=== PATIENT | male | born 1935 | race Caucasian/White ===

== ENCOUNTER 2023-06-30 12:46 | Emergency (ER) | payer MEDICARE, BC, SELFPAY ==
[2023-06-30] VITALS (16 sets, daily range): BP systolic 104–139; BP diastolic 55–74; PULSE 61–86; RESP 10–17; TEMP 36.8; O2SAT 78–100
--- NOTE | ~2023-06-30 | CT_ITS ---
EXAMINATION: CT cervical spine wo con DATE: 06/30/2023 14:21 INDICATION: Head injury TECHNIQUE: Computed tomography (CT) of the cervical spine was performed without intravenous contrast. The dose-length product (DLP) was 244.78 mGy-cm. Automated exposure control and iterative reconstruc tion technique were employed. COMPARISON: None FINDINGS: Bone alignment is normal. There is no fracture. There is severe loss of intervertebral disc space height at C5-6 and C6-7. The vertebral body heights are maintained. The odontoid process is in tact. There is multilevel moderate facet and uncovertebral joint osteoarthritis. Lytic lesions are no crow in the C3-C6 vertebral bodies as well as in the C3 spinous process. IMPRESSION: 1. Severe cervical spondylosis at C5-6 and C6-7 without acute findings. 2. Lytic lesions of the cervical spine which could reflect metastatic disease, myeloma, or other bone lesion. Reviewed, dictated and finalized at location A.
--- NOTE | ~2023-06-30 | XR_ITS ---
EXAMINATION: XR hip RT 2V w AP pelvis DATE: 06/30/2023 14:22 INDICATION: Right hip pain. Fall. TECHNIQUE: An anteroposterior view of the pelvis and 2 views of right hip were obtained. COMPARISON: None. FINDINGS: There is lumbar levocurvature and severe spondylosis. No fracture. There is moderate osteoa rthritis of the hips. IMPRESSION: 1. Moderate osteoarthritis of the hips. Reviewed, dictated and finalized at location E.
--- NOTE | ~2023-06-30 | CT_ITS ---
EXAMINATION: CT brain wo con INDICATION: Head injury COMPARISON: None TECHNIQUE: Standard unenhanced head CT. The dose-length product (DLP) was 605.33 mGy-cm. The mA was a djusted according to patient size. Iterative reconstruction technique was employed. FINDINGS: There is no acute intraparenchymal hemorrhage. No evidence of mass lesion. No evidence of a cute infarction. There is moderate periventricular and subcortical hypodensity probably related to sm all vessel ischemic disease. There is a right frontotemporal scalp hematoma. There is moderate promin ence of the sulci and ventricles related to cerebral atrophy. Intracranial calcified cerebral atheros clerosis is noted. There are no extra-axial collections. There is no mass effect or midline shift. Th e orbits and soft tissues are unremarkable. There is mild mucosal thickening of the paranasal sinuses . An old left temporal craniotomy defect is noted. IMPRESSION: 1. No acute intracranial abnormality. 2. Age related findings. Reviewed, dictated and finalized at location A.
--- NOTE | 2023-06-30 13:41 | ED.FALL ---
HPI - Fall General Chief Complaint: Fall Stated Complaint: GLF, head injury Time Seen by Provider: 06/30/23 13:13 History of Present Illness HPI Narrative: Patient is an 87-year-old male presenting after a fall. 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 He was discharged to a nursing facility several days ago. Today he tried to stand up from his wheelchair and he fell forward striking the right side of his face. Also sustained some skin tears to his right arm. He was complaining of right hip pain. Does not think that he lost consciousness. He does started aspirin but no anticoagulation. Denies further complaints. Unsure last tetanus. Related Data Allergies Allergy/AdvReac Type Severity Reaction Status Date / Time No Known Allergies Allergy Verified 06/30/23 15:04 Review of Systems Review of Systems: All systems reviewed & are unremarkable except as noted in HPI and below Exam Narrative: GENERAL: Elderly male lying in bed in no acute distress HEAD: Normocephalic, 1 centimeter laceration lateral to the right eye EYES: PERRLA and EOMI. ENT: Nares clear, no rhinorrhea or epistaxis. Mucous membranes moist. NECK: Supple. CHEST: No respiratory distress. HEART: Regular rate and rhythm ABDOMEN: Soft, nontender, nondistended EXTREMITIES: no edema SKIN: Warm, dry, no rash. NEURO: Alert and oriented x3. +R sided weakness and numbness which is unchanged from stroke 2 weeks ago PSYCH: Normal mood and affect. Course Vital Signs Vital signs: Vital Signs Pulse Rate 61 06/30/23 13:06 Respiratory Rate 14 06/30/23 13:06 Pulse Oximetry 100 06/30/23 13:06 Temperature 98.3 F 06/30/23 13:19 Pulse Rate 86 06/30/23 16:30 Respiratory Rate 16 06/30/23 16:30 Blood Pressure 139/74 06/30/23 16:30 Pulse Oximetry 97 06/30/23 16:30 Oxygen Delivery Room Air 06/30/23 13:19 Procedures Laceration Laceration 1: Date: 06/30/23 Time: 16:02 Site: face Side (If applicable): right Size (cm): 1 Description: linear Depth: simple, single layer Local Anesthetic: lidocaine 1% Pre-repair: wound explored and irrigated ====== Skin Level ====== Skin layer closed with: nylon Size (cm): 4-0 Number of sutures: 2 ====== Subcutaneous Layer ====== ====== Muscle Layer ====== ====== Tendon Layer ====== MDM - Fall MDM Narrative Medical decision making narrative: Patient is an 87-year-old male presenting after a fall. Vitals are within normal limits. Exam remarkable for the above. Plan for CT brain, cervical spine, x-rays of the right hip, Tdap, stitches. Imaging is negative for acute injuries. Tdap was updated. Laceration was repaired at bedside, please see procedure note below for further detail. Tolerated without complication. Discussed appropriate supportive care. Advised that he have these removed in 5 to 7 days. Appropriate return precautions given. Patient and his daughter voiced understanding and are agreeable with plan. Discharged back to his rehab facility in stable condition. Differential Diagnosis Differential diagnosis: Likely other (fall, head injury, facial laceration) Medical Records Attestation: I reviewed the patient's medical records. Imaging Data Radiologist's impression: ITS Impressions Head CT 06/30/23 14:26 IMPRESSION: 1. No acute intracranial abnormality. 2. Age related findings. Cervical Spine CT 06/30/23 14:30 IMPRESSION: 1. Severe cervical spondylosis at C5-6 and C6-7 without acute findings. 2. Lytic lesions of the cervical spine which could reflect metastatic disease, myeloma, or other bone lesion. Hip/Pelvis X-Ray 06/30/23 14:31 IMPRESSION: 1. Moderate osteoarthritis of the hips. Critical Care Time Critical Care Time Critical Care Time: No Discharge Plan Discharge Clinical Imp
[2023-06-30] MEDS: TETANUS,DIPHTHERIA,AC PERTUSSIS ADULT (0.5 ML) BOOSTRIX IM (15:05)
== END 2023-06-30 16:32 ==
PROVIDERS: Emergency Provider Emergency Medicine; PCP Internal Medicine
DX: S01.81XA Laceration without foreign body of other part of head, initial encounter (principal); Z23 Encounter for immunization; I69.351 Hemiplegia and hemiparesis following cerebral infarction affecting right dominant side; M47.812 Spondylosis without myelopathy or radiculopathy, cervical region; M16.0 Bilateral primary osteoarthritis of hip; W05.0XXA Fall from non-moving wheelchair, initial encounter
CPT/HCPCS: 12011; 70450; 72125; 73502; 90471; 90715; 99284

== ENCOUNTER 2023-11-23 06:56 | Emergency (ER) | payer MEDICARE, BC, SELFPAY ==
[2023-11-23] VITALS (17 sets, daily range): BP systolic 128–152; BP diastolic 60–85; PULSE 57–66; RESP 12–18; TEMP 36.6; O2SAT 98–100
--- NOTE | ~2023-11-23 | CT_ITS ---
EXAMINATION: CT facial & cervical spine wo DATE: 11/23/2023 09:12 INDICATION: Fall. Nasal swelling. TECHNIQUE: Computed tomography (CT) of the facial bones and maxillofacial region was performed withou t intravenous contrast. Automated exposure control and iterative reconstruction technique were employ ed. Exam dose: 390.50 mGy-cm total exam DLP. COMPARISON: None. FINDINGS: The nasal bones, anterior maxillary spine, frontozygomatic sutures, orbital rims and sue, zygomatic arches, maxillary bones and pterygoid plates are intact, without evidence of fracture. Nor mal alignment at the temporomandibular joints. No mandibular fracture is detected. There is straightening of the cervical spine. There is minimal anterolisthesis at C4-5 without abnormal widening of the apophyseal joints. There is moderately severe degenerative disc disease at C5-6 and C6-7 and mild degenerative disc dise ase at the remainder of the cervical spine. C1 and C2 are normally aligned and the odontoid process is intact. No fracture or dislocation or lock ed facet or prevertebral soft tissue swelling is detected. There is degenerative change at the apophyseal joints. There is uncovertebral joint spurring bilaterally at C5-6 and C6-7. IMPRESSION: No facial fracture Straightening of the cervical spine Minimal anterolisthesis at C4-5 Cervical spondylosis Reviewed, dictated and finalized at Location A. Reviewed, dictated and finalized at location A. CTOR OF DIETARY
--- NOTE | ~2023-11-23 | CT_ITS ---
EXAMINATION: CT brain wo con DATE: 11/23/2023 09:12 INDICATION: Unwitnessed fall. Nasal swelling. TECHNIQUE: Computed tomography (CT) of the head was performed without intravenous contrast. The mA wa s adjusted according to patient size. Iterative reconstruction technique was employed. Exam dose: 60 5.33 mGy-cm total exam DLP. COMPARISON: 06/30/2023 CT brain FINDINGS: Prominent right vertebral artery calcification as well as some basilar artery and prominent bilateral carotid siphon and supraclinoid internal carotid artery calcifications. There is nonspecific diminished attenuation of the cerebral white matter, likely due to chronic small vessel ischemic changes. There is prominent central and cortical cerebral and cerebellar atrophy. No intracranial mass lesion or hemorrhage, midline shift or mass effect is detected. There is a left temporal parietal bone flap secured by plates and screws. No fracture or bone destruc tion of the cranial vault. There is some soft tissue thickening the ethmoid air cells but the included paranasal sinuses and mas toid air cells otherwise are unremarkable. IMPRESSION: No skull fracture or acute intracranial finding Central and cortical cerebral and cerebellar atrophy Cerebral atherosclerosis and chronic small vessel ischemic changes of cerebral white matter Reviewed, dictated and finalized at Location A. Reviewed, dictated and finalized at location A. SALESPERSON
--- NOTE | 2023-11-23 09:49 | ED.FALL ---
HPI - Fall General Chief Complaint: Fall Stated Complaint: unwitnessed glf Time Seen by Provider: 11/23/23 09:09 Source: patient, family and EMS Mode of arrival: EMS Limitations: dementia History of Present Illness HPI Narrative: This is a 88 year old male that presents to the ER after a fall today with head injury. Patient had unwitnessed fall at [facility]. Injury to the nose and mouth. Patient is alert and oriented x1 (his baseline). He is unable to give any history. No other obvious injuries or signs of trauma. Related Data Allergies Allergy/AdvReac Type Severity Reaction Status Date / Time No Known Allergies Allergy Verified 06/30/23 15:04 Review of Systems Review of Systems: ROS unobtainable: Yes unobtainable due to medical condition PMFSH Past Medical History Medical History (Updated 11/23/23 @ 10:37 by Antonietta Lowery PA-C) History of CVA (cerebrovascular accident) History of dementia Social History Social History (Updated 11/23/23 @ 09:51 by Antonietta Lowery PA-C) Substance use: never Exam Narrative: GENERAL: Elderly, well-nourished, and in no acute distress. HEAD: Normocephalic. Dried blood in the nares EYES: PERRLA and EOMI. ENT: Nares clear, no rhinorrhea or epistaxis. Mucous membranes dry. Oropharynx without tonsillar hypertrophy exudate or other lesions. Bilateral TMs pearly fowler non-bulging NECK: Supple. No adenopathy or masses. C collar in place CHEST: Clear to auscultation. No respiratory distress. No wheezes rales or rhonchi HEART: Regular rate and rhythm. No murmur heard. Normal peripheral pulses. ABDOMEN: Soft, nontender, nondistended, normal active bowel sounds. BACK: No midline spinal tenderness EXTREMITIES: Normal range of motion. No edema or obvious deformity. SKIN: Warm, dry, no rash. NEURO: No focal deficits. Alert and oriented x1. PSYCH: Normal mood and affect Course Course Emergency Course: patient and family updated on his workup Vital Signs Vital signs: Vital Signs Pulse Rate 61 11/23/23 07:00 Respiratory Rate 16 11/23/23 07:00 Pulse Oximetry 99 11/23/23 07:00 Temperature 97.8 F 11/23/23 07:01 Pulse Rate 64 11/23/23 09:46 Respiratory Rate 16 11/23/23 09:46 Blood Pressure 128/79 11/23/23 09:46 Pulse Oximetry 99 11/23/23 09:46 Oxygen Delivery Room Air 11/23/23 07:01 MDM - Fall MDM Narrative Medical decision making narrative: Patient presents to the emergency department after an unwitnessed fall at his facility with head injury. Patient is alert and oriented x1 at his baseline. His vitals are stable. Dried blood in the nares, otherwise no obvious signs of trauma. Patient moving all extremities. No midline spinal tenderness. CBC with mild leukocytosis to 10.1. Also shows normocytic anemia with hemoglobin of 12.7. Metabolic panel without concerning findings. CK is normal. CT brain, cervical spine, and facial bones without acute findings. Patient and family updated on his workup. Will be discharged back with follow-up with PCP. They were given warnings to return to the ER Differential Diagnosis Differential diagnosis: Likely concussion with loss of consciousness, concussion without loss of consciousness and other (intracranial hemorrhage, nasal bone fracture, cervical spine fracture) Lab Data Attestation: I reviewed the patient's lab results. 11/23/23 09:56 11/23/23 09:56 Labs: Lab Results 11/23/23 Range/Units 09:56 WBC 10.1 H (4.5-10.0) K/mm3 RBC 4.06 L (4.6-6.20) M/mm3 Hgb 12.7 L (14.0-18.0) g/dL Hct 39.5 L (42.0-52.0) % MCV 97.3 (80-100) fl MCH 31.3 (26-34) pg MCHC 32.2 (32-36) g/dl RDW 12.5 (11.5-14.5) % Plt Count 214 (150-375) k/mm3 MPV 9.4 (7.4-10.4) fl Immature Gran % (Auto) 0.2 (0-0.5) % Neut % (Auto) 68.4 (45.5-73.1) % Lymph % (Auto) 13.7 L (18.3-44.2) % [place] % (Auto) 9.4 H (2.6-8.5) % Eos % (Auto) 8.0 H (0-4.4) % B
[2023-11-23] MEDS: ACETAMINOPHEN ELIXIR 325 MG/10.15 ML UDC 650 MG PO (10:04)
[2023-11-23 10:10] LABS: Basophils Percent Auto 0.3 % (0.2-1.2); Eosinophils Absolute Auto 0.8 K/mm3 (0-0.3); Hematocrit 39.5 % (42.0-52.0); Hemoglobin 12.7 g/dL (14.0-18.0); Immature Granulocyte Absolute 0.02 K/mm3 (0.00-0.031); Immature Granulocyte Percent A 0.2 % (0-0.5); Lymphocytes Absolute Auto 1.39 K/mm3 (0.9-3.2); Lymphocytes Percent Auto 13.7 % (18.3-44.2); Mean Corpuscular HGB Conc 32.2 g/dl (32-36); Mean Corpuscular Hemoglobin 31.3 pg (26-34); Mean Corpuscular Volume 97.3 fl (80-100); Mean Platelet Volume 9.4 fl (7.4-10.4); Monocytes Percent Auto 9.4 % (2.6-8.5); Neutrophils Absolute Auto 6.9 K/mm3 (1.3-6.7); Neutrophils Percent Auto 68.4 % (45.5-73.1); Platelet Count Result 214 k/mm3 (150-375); Red Blood Count 4.06 M/mm3 (4.6-6.20); Red Cell Distribution Width 12.5 % (11.5-14.5); White Blood Count 10.1 K/mm3 (4.5-10.0)
[2023-11-23 10:14] LABS: Alanine Aminotransferase 33 U/L (6-50); Albumin Level 3.9 g/dL (3.5-5.1); Alkaline Phosphatase 94 U/L (38-126); Anion Gap 9 mmol/L (8-16); Aspartate Amino Transferase 29 U/L (17-59); Bilirubin,Total 1.4 mg/dL (0.2-1.3); Blood Urea Nitrogen 17 mg/dL (9-20); Calcium 8.9 mg/dL (8.4-10.2); Carbon Dioxide 24 mmol/L (22-30); Chloride 106 mmol/L (98-107); Creatine Kinase 76 U/L (55-170); Estimated CRCL calculation 50 ml/min; Estimated Glomerular Filt Rate > 60; Glucose 98 mg/dL (65-110); Potassium 3.9 mmol/L (3.4-5.0); Sodium 139 mmol/L (137-145)
== END 2023-11-23 11:59 ==
PROVIDERS: Emergency Provider Physician Assistant; PCP Internal Medicine
DX: S09.92XA Unspecified injury of nose, initial encounter (principal); S09.93XA Unspecified injury of face, initial encounter; F03.90 Unspecified dementia, unspecified severity, without behavioral disturbance, psychotic disturbance, mood disturbance, and anxiety; Z86.73 Personal history of transient ischemic attack (TIA), and cerebral infarction without residual deficits; I67.2 Cerebral atherosclerosis; M47.812 Spondylosis without myelopathy or radiculopathy, cervical region; W19.XXXA Unspecified fall, initial encounter
CPT/HCPCS: 36415; 70450; 70486; 72125; 80053; 82550; 85025; 99284; A9270

== ENCOUNTER 2023-12-01 08:33 | Emergency (ER) | payer MEDICARE, BC, SELFPAY ==
--- NOTE | ~2023-12-01 | CT_ITS ---
EXAMINATION: CT brain wo con INDICATION: Head injury COMPARISON: 11/23/2023 TECHNIQUE: Standard unenhanced head CT. The dose-length product (DLP) was 605.33 mGy-cm. The mA was a djusted according to patient size. Iterative reconstruction technique was employed. FINDINGS: No acute intraparenchymal hemorrhage. No evidence of mass lesion. No evidence of acute infa rction. There is an area of prior infarction in the left frontal lobe. There is moderate periventricu lar and subcortical hypodensity probably related to small vessel ischemic disease. There is moderate prominence of the sulci and ventricles related to cerebral atrophy. Intracranial calcified cerebral a therosclerosis is noted. Changes of left frontal craniotomy are noted. No extra-axial collections. No mass effect or midline shift. The orbits and soft tissues are unremarkable. There is mild mucosal th ickening of the paranasal sinuses. IMPRESSION: 1. No acute intracranial abnormality. 2. Age related findings. Reviewed, dictated and finalized at location F. BUCKER
--- NOTE | ~2023-12-01 | XR_ITS ---
EXAMINATION: XR chest 1V INDICATION: Lethargy TECHNIQUE: Frontal view of the chest is obtained. COMPARISON: None available FINDINGS: The lung volumes are low. Cardiomegaly is noted. No pleural effusion or pneumothorax. There are minimal airspace opacities of the left lung base. A dual-lead cardiac pacemaker of the left ches t wall ends with leads in expected locations. There is advanced osteoarthritis of right glenohumeral joint. There is moderate osteoarthritis of the left glenohumeral joint. IMPRESSION: 1. Left basilar airspace opacity, consistent with atelectasis versus pneumonia. 2. Cardiomegaly. Reviewed, dictated and finalized at location F. T SHIPPER
[2023-12-01 08:32] VITALS: BP 133/61; PULSE 57; RESP 18; TEMP 36.9; O2SAT 100
--- NOTE | 2023-12-01 08:40 | ED.FALL ---
HPI - Fall General Chief Complaint: Fall Stated Complaint: increased lethargy Time Seen by Provider: 12/01/23 08:34 History of Present Illness HPI Narrative: 88-year-old male with history of CVA and dementia presenting to the emergency department for [facility] [place] for evaluation after having multiple falls. Patient has been reported to have increased falls since November 18. Patient did have another fall this morning and was found on the floor. Patient denies any pain or injury. Related Data Allergies Allergy/AdvReac Type Severity Reaction Status Date / Time No Known Allergies Allergy Verified 12/01/23 08:39 Review of Systems Review of Systems: All systems reviewed & are unremarkable except as noted in HPI and below PMFSH Past Medical History Medical History (Updated 12/01/23 @ 10:34 by Godfrey Pendleton MD) History of CVA (cerebrovascular accident) History of dementia Social History Social History (Updated 11/23/23 @ 09:51 by Antonietta Lowery PA-C) Substance use: never Exam Narrative: APPEARANCE: Well appearing, no pain, no distress, well-nourished. HEAD: normocephalic, skin tear to interior left scalp. EYES: PERRLA/EOMI, conjunctivae clear. NOSE: Normal no drainage EARS:TMS clear with good light reflex. THROAT: Pharynx clear, no exudate. NECK: Supple. No adenopathy, no masses. RESPIRATORY: Airway patent, respirations nonlabored. Clear to auscultation bilaterally, no rales, rhonchi, wheezing. CARDIOVASCULAR: Regular rate and rhythm without murmurs rubs or gallops. ABDOMINAL: Soft, nontender, nondistended, normal bowel sounds MUSCULOSKELETAL: Moves all extremities. Strength/ROM intact, No edema, No calf tenderness. NEURO: Alert. Cranial nerves II through XII intact. Good gait. Good coordination SKIN: Warm, dry. Normal Color Course Course Emergency Course: 88-year-old male with history of dementia and frequent urinary tract infections presenting to the emergency department for evaluation of increased lethargy. Patient is afebrile but does have a leukocytosis of 13. Patient is alert and oriented at his baseline but is more tired than usual per the patient's son. Patient is on prophylactic Keflex. Son was concerned that the patient may not be the receiving his tamsulosin or finasteride, these are listed as current medications on his med list from his care facility. Patient was negative for influenza RSV and for COVID, head CT was negative for acute intracranial abnormality. Chest x-ray showed no acute abnormality. Post residual bladder scan showed no significant urinary retention. Vital Signs Vital signs: Vital Signs Temperature 98.5 F 12/01/23 08:32 Pulse Rate 57 L 12/01/23 08:32 Respiratory Rate 18 12/01/23 08:32 Blood Pressure 133/61 12/01/23 08:32 Pulse Oximetry 100 12/01/23 08:32 Oxygen Delivery Room Air 12/01/23 08:32 Temperature 98.5 F 12/01/23 08:32 Pulse Rate 64 12/01/23 10:59 Respiratory Rate 16 12/01/23 10:59 Blood Pressure 123/64 12/01/23 10:59 Pulse Oximetry 99 12/01/23 10:59 Oxygen Delivery Room Air 12/01/23 08:32 MDM - Fall Differential Diagnosis Differential diagnosis: Likely concussion with loss of consciousness and concussion without loss of consciousness Lab Data Attestation: I reviewed the patient's lab results. 12/01/23 08:53 12/01/23 08:53 Labs: Lab Results 12/01/23 12/01/23 12/01/23 Range/Units 08:49 08:53 09:24 WBC 13.0 H (4.5-10.0) K/mm3 RBC 3.83 L (4.6-6.20) M/mm3 Hgb 11.9 L (14.0-18.0) g/dL Hct 36.8 L (42.0-52.0) % MCV 96.1 (80-100) fl MCH 31.1 (26-34) pg MCHC 32.3 (32-36) g/dl RDW 12.6 (11.5-14.5) % Plt Count 189 (150-375) k/mm3 MPV 9.3 (7.4-10.4) fl Immature Gran % (Auto) 0.5 (0-0.5) % Neut % (Auto) 73.8 H (45.5-73.1) % Lymph % (Auto) 9.9 L (18.3-44.2) % [place] % (Auto) 14.7 H (2.6-8.5) % Eos % (Auto)
[2023-12-01 08:45] VITALS: BP 116/51; PULSE 56; RESP 16; O2SAT 98
[2023-12-01 08:59] LABS: Basophils Percent Auto 0.3 % (0.2-1.2); Eosinophils Absolute Auto 0.1 K/mm3 (0-0.3); Eosinophils Percent Auto 0.8 % (0-4.4); Hematocrit 36.8 % (42.0-52.0); Hemoglobin 11.9 g/dL (14.0-18.0); Immature Granulocyte Absolute 0.07 K/mm3 (0.00-0.031); Immature Granulocyte Percent A 0.5 % (0-0.5); Lymphocytes Absolute Auto 1.28 K/mm3 (0.9-3.2); Lymphocytes Percent Auto 9.9 % (18.3-44.2); Mean Corpuscular HGB Conc 32.3 g/dl (32-36); Mean Corpuscular Hemoglobin 31.1 pg (26-34); Mean Corpuscular Volume 96.1 fl (80-100); Mean Platelet Volume 9.3 fl (7.4-10.4); Monocytes Absolute Auto 1.9 K/mm3 (0.1-0.6); Monocytes Percent Auto 14.7 % (2.6-8.5); Neutrophils Absolute Auto 9.6 K/mm3 (1.3-6.7); Neutrophils Percent Auto 73.8 % (45.5-73.1); Platelet Count Result 189 k/mm3 (150-375); Red Blood Count 3.83 M/mm3 (4.6-6.20); Red Cell Distribution Width 12.6 % (11.5-14.5)
[2023-12-01 09:15] LABS: Alanine Aminotransferase 23 U/L (6-50); Albumin Level 3.5 g/dL (3.5-5.1); Alkaline Phosphatase 80 U/L (38-126); Anion Gap 8 mmol/L (8-16); Aspartate Amino Transferase 21 U/L (17-59); Bilirubin,Total 1.9 mg/dL (0.2-1.3); Blood Urea Nitrogen 26 mg/dL (9-20); Calcium 8.7 mg/dL (8.4-10.2); Carbon Dioxide 25 mmol/L (22-30); Chloride 103 mmol/L (98-107); Estimated CRCL calculation 32 ml/min; Estimated Glomerular Filt Rate 44; Glucose 111 mg/dL (65-110); Potassium 4.1 mmol/L (3.4-5.0); Sodium 136 mmol/L (137-145)
[2023-12-01 09:39] LABS: Appearance Urine Turbid (Clear); Bacteria Urine 4+ /hpf; Bilirubin Urine Negative (Negative); Blood Urine 2+ (Negative); Color Urine Yellow (Yellow); Glucose Urine UA Negative (Negative); Ketones Urine Trace mg/dL (Negative); Leukocyte Esterase Ur 3+ LEU/UL (Negative); Need Manual Microscopic Reviewed; Nitrate Urine Positive (Negative); Protein Urine 2+ mg/dL (Negative); RBC Urine 0-2 /hpf (0-2); Specific Grav Ur 1.015 (1.001-1.035); Squamous Epithelial Cell Urine Moderate /hpf (Few); Urobilinogen Urine 0.2 mg/dL (<2.0); WBC Urine >100 /hpf
[2023-12-01 09:42] LABS: Add Urine Microscopic? YES
[2023-12-01] MEDS: SODIUM CHLORIDE 0.9% IV 500 ML 999 ML IV CONT (09:45)
[2023-12-01 10:27] LABS: Influenza A QL RT-PCR Negative (Negative); Influenza B QL RT-PCR Negative (Negative); RSV RNA, RT-PCR Negative (Negative); SARS-CoV-2 RNA PCR Negative (Negative)
[2023-12-01 10:59] VITALS: BP 123/64; PULSE 64; RESP 16; O2SAT 99
== END 2023-12-01 11:01 ==
PROVIDERS: Emergency Provider Emergency Medicine; PCP Internal Medicine
DX: N39.0 Urinary tract infection, site not specified (principal); R53.83 Other fatigue; Z20.822 Contact with and (suspected) exposure to COVID-19; F03.90 Unspecified dementia, unspecified severity, without behavioral disturbance, psychotic disturbance, mood disturbance, and anxiety; Z86.73 Personal history of transient ischemic attack (TIA), and cerebral infarction without residual deficits; I51.7 Cardiomegaly
CPT/HCPCS: 36415; 70450; 71045; 80053; 81001; 85025; 87077; 87086; 87186; 87637; 96361; 96374; 99284; J0696; J7040

== ENCOUNTER 2024-12-15 20:07 | Inpatient (IN) | payer MEDICARE, BC, SELFPAY ==
--- NOTE | ~2024-12-15 | XR_ITS ---
EXAMINATION: XR chest 1V portable DATE: 12/15/2024 21:31 INDICATION: Infection. TECHNIQUE: A single frontal view of the chest was obtained. COMPARISON: Chest single view 12/01/2023 FINDINGS: There is an interstitial pattern in the lungs, consistent with mild pulmonary edema. No ple ural effusion or pneumothorax. The heart size is normal. There is a left chest wall pacer with leads in the right atrium and right ventricle. Surgical clips in the right upper quadrant are likely from c holecystectomy. IMPRESSION: 1. Mild pulmonary edema. 2. Cardiomegaly. Reviewed, dictated and finalized at location A. [employer]
--- NOTE | ~2024-12-15 | CT_ITS ---
EXAMINATION: CT brain wo con DATE: 12/15/2024 22:56 INDICATION: Altered mental status. TECHNIQUE: Computed tomography (CT) of the head was performed without intravenous contrast. The mA wa s adjusted according to patient size. Iterative reconstruction technique was employed. The dose-lengt h product was 681.00 mGy-cm. COMPARISON: Head CT 12/01/2023 FINDINGS: There is diffuse brain volume loss. There is chronic encephalomalacia in left frontal lobe. There are changes of left-sided craniotomy. There are scattered areas of low attenuation in the cere bral white matter, which is within normal limits for the patient's age. There is no intracranial hemo rrhage, acute infarction, or abnormal intracranial mass lesion. The ventricles are normal in size. Th ere is mucosal thickening in the paranasal sinuses. There are likely changes of ocular lens replaceme nt surgeries. IMPRESSION: 1. 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 Reviewed, dictated and finalized at location A. H SANDER
[2024-12-15 20:09] VITALS: BP 113/52; PULSE 74; RESP 17; TEMP 37.9; O2SAT 96
[2024-12-15 20:52] LABS: Basophils Percent Auto 0.1 % (0.2-1.2); Eosinophils Percent Auto 0.1 % (0-4.4); Hematocrit 39.1 % (42.0-52.0); Hemoglobin 12.6 g/dL (14.0-18.0); Immature Granulocyte Absolute 0.07 K/mm3 (0.00-0.031); Immature Granulocyte Percent A 0.7 % (0-0.5); Lymphocytes Absolute Auto 0.27 K/mm3 (0.9-3.2); Lymphocytes Percent Auto 2.6 % (18.3-44.2); Mean Corpuscular HGB Conc 32.2 g/dl (32-36); Mean Corpuscular Hemoglobin 31.7 pg (26-34); Mean Corpuscular Volume 98.5 fl (80-100); Mean Platelet Volume 9.2 fl (7.4-10.4); Monocytes Absolute Auto 0.7 K/mm3 (0.1-0.6); Monocytes Percent Auto 6.9 % (2.6-8.5); Neutrophils Absolute Auto 9.4 K/mm3 (1.3-6.7); Neutrophils Percent Auto 89.6 % (45.5-73.1); Platelet Count Result 212 k/mm3 (150-375); Red Blood Count 3.97 M/mm3 (4.6-6.20); Red Cell Distribution Width 13.1 % (11.5-14.5); White Blood Count 10.5 K/mm3 (4.5-10.0)
[2024-12-15 21:02] LABS: Alanine Aminotransferase 33 U/L (6-50); Albumin Level 3.9 g/dL (3.5-5.1); Alkaline Phosphatase 97 U/L (38-126); Anion Gap 10 mmol/L (4-12); Aspartate Amino Transferase 25 U/L (17-59); Bilirubin,Total 1.1 mg/dL (0.2-1.3); Blood Urea Nitrogen 32 mg/dL (9-20); Calcium 9.3 mg/dL (8.4-10.2); Carbon Dioxide 24 mmol/L (22-30); Chloride 105 mmol/L (98-107); Estimated CRCL calculation 32 ml/min; Estimated Glomerular Filt Rate 47; Glucose 122 mg/dL (65-110); Lactic Acid Reflex 2.1 mmol/L (0.7-2.0); Lipase 42 U/L (23-300); Potassium 4.4 mmol/L (3.4-5.0); Sodium 139 mmol/L (137-145)
--- OUTSIDE RECORDS SUMMARY | 2024-12-15 21:17 | XMS_ITS | Clinical Summary ---
Author Organization [facility] Address [address] [place] [address] Phone Care Team Providers Care Woven Label Designer Name Role Phone Devin Dickey MD Primary Care Provider [phone] Allergies No known active allergies Medications ibuprofen (MOTRIN) 400 MG Tablet Take 200 mg by mouth. Active miconazole (LISA; MICATIN) 2 % Cream Apply. 05/07/2023 Active finasteride (PROSCAR) 5 MG Tablet Take 5 mg by mouth daily. 05/13/2023 Active tamsulosin (FLOMAX) 0.4 MG Capsule TAKE 1 CAPSULE BY MOUTH AT BEDTIME 05/13/2023 Active Active Problems No known active problems Family History Medical History Relation Name Comments No Known Problems Sister Relation Name Status Comments Brother Father Mother Sister Alive Social History Tobacco Use Types Packs/Day Years Used Date Smoking Tobacco: Never Passive Smoke Exposure: Never Smokeless Tobacco: Never Tobacco Cessation:Counseling Given: No Alcohol Use Standard Drinks/Week Comments Not Currently 0 (1 standard drink = 0.6 oz pur e alcohol) Sexually Active Control Partners Comments Not Currently Sex and Gender Information Value Date Recorded Sex Assigned at Not on file Legal Sex Male 7:15 PM CDT Gender Identity Not on file Sexual Orientation Not on file Last Filed Vital Signs Vital Sign Reading Time Taken Comments Blood Pressure 126/70 06/19/2023 8:30 AM CDT Pulse 68 06/19/2023 8:30 AM CDT Temperature 36.8 ??C (98.2 ??F) 06/19/2023 8:30 AM CD T Respiratory Rate - - Oxygen Saturation 96% 06/19/2023 8:30 AM CDT Inhaled Oxygen Concentration - - Weight 74.4 kg (164 lb) 06/19/2023 8:30 AM CDT Height 172.7 cm (5' 8 ) 06/19/2023 8:30 AM CDT Body Mass Index 24.94 06/19/2023 8:30 AM CDT Plan of Treatment Health Maintenance Due Date Last Done Comments Hepatitis C Virus (HCV) Screening 1935 TdaP Immunization 1935 Respiratory Syncytial Virus (RSV) Immunization (Adult) (1 - 1-dose 75+ series) 2011 Influenza Immunization (#1) 07/19/202406/19, 07/04/2016, 08/03/2015 SARS-COV-2 Immunization ( - 2023- season) 2024 Pneumococcal Immunization (50+ years) Discontinued 03/19/2015 Hepatitis B Immunization Aged Out No longer eligible based on patient's age to complete this topic Meningococcal Immunization (ACWY) Aged Out No longer eligible based on patient's age to complete this topic Rotavirus Immunization Aged Out No lo nger eligible based on patient's age to complete this topic Zoster Immunization Discontinued Insurance [facility] MEDICARE Care Teams Woven Label Designer Relationship Specialty Start Date End Date Devin Dickey MD [address] [place] [address] PCP - General Internal Medicine 06/19/23
--- OUTSIDE RECORDS SUMMARY | 2024-12-15 21:17 | XMS_ITS | Clinical Summary ---
Author Organization [facility] Address [address] [place] [address]. [place], [place] [id number] [place] [id number] Care Team Providers Care Parole Director Name Role Phone Unavailable Primary Care Provider Unavailabl e Social History Tobacco Use Types Packs/Day Years Used Date Smoking Tobacco: Never Assessed Sex and Gender Information Value Date Recorded Sex Assigned at Not on file Legal Sex Male 9:48 AM CDT Gender Identity Not on file Sexual Orientation Not on file Plan of Treatment Health Maintenance Due Date Last Done Comments DTaP, Tdap and Td Vaccines ( 1 - Tdap) 1955 Zoster Vaccines (1 of 2) 1986 Annual Medicare Wellness Visit 2001 Pneumococcal Vaccine: 65+ Ye ars (1 of 1 - PCV) 2001 RSV Immunization or 60+ Years (1 - 1-dose 75+ series) 2011 COVID-19 Vaccine (2023-2 5 season) 2024 Influenza Adult (#1) 2024 Meningococcal B Vaccine Aged Out No l onger eligible based on patient's age to complete this topic Meningococcal Vaccine Aged Out No pearl louie eligible based on patient's age to complete this topic RSV Immunizations Under 20 Months Aged Out No longer eligible based on patient's age to complete this topic Insurance [facility] MEDICARE
[2024-12-15 21:19] LABS: Ovalocytes 1+; Platelet Estimate Adequate (Adequate); Poikilocytosis 1+; Schistocytes None Seen
--- NOTE | 2024-12-15 21:22 | ED.NAVMDI ---
HPI - Nausea/Vomiting/Diarrhea General Chief complaint: Nausea/Vomiting/Diarrhea Stated complaint: LETHERGY/GI SYMPTOMS Time Seen by Provider: 12/15/24 20:11 History of Present Illness HPI Narrative: Patient is an 81-year-old male who presents with complaint is of lethargy, emesis, diarrhea. He has a history of strokes and TIAs, with the most recent TIA being 1 month ago, per his daughter. Patient's daughter reports he is presenting today similar to the way he did with his last TIA 1 month ago. She reports his 1st stroke was in June 2023. He has been living in [place] since then in the [facility]. Patient's daughter reports he has chronic UTIs and is on oral antibiotics every day. He also has a pacemaker that had a battery exchange in June 2024. Today the [place] reports he has had increased lethargy, and has been unable to keep any p.o. intake down. His daughter reports he is A&Ox1 at baseline. Upon the time of examination patient denies any pain. Related Data Home Medications ?Medication ?Instructions ?Recorded ?Confirmed ?Last Taken ?Type aspirin 325 mg tablet 325 mg PO DAILY 12/16/24 12/16/24 12/15/24 08:00 History atorvastatin 40 mg tablet (Lipitor) 40 mg PO DAILY 12/16/24 12/16/24 12/15/24 18:00 History carvedilol 12.5 mg tablet (Coreg) 12.5 mg PO BID 12/16/24 12/16/24 12/15/24 21:00 History cephalexin 250 mg capsule 250 mg PO DAILY 12/16/24 12/16/24 12/15/24 08:00 History diphenhydramine 25 1 tablet PO HS PRN sleep 12/16/24 12/16/24 12/15/24 21:00 History mg-acetaminophen 500 mg tablet (Acetaminophen PM) finasteride 5 mg tablet (Proscar) 5 mg PO DAILY 12/16/24 12/16/24 12/15/24 08:00 History loratadine 10 mg tablet (Allergy 10 mg PO DAILY 12/16/24 12/16/24 12/15/24 08:00 History Relief (loratadine)) ondansetron HCl 4 mg tablet 4 mg PO Q6H PRN nausea and vomiting 12/16/24 12/16/24 Unknown History tamsulosin 0.4 mg capsule (Flomax) 0.4 mg PO DAILY 12/16/24 12/16/24 12/15/24 History Allergies Allergy/AdvReac Type Severity Reaction Status Date / Time No Known Allergies Allergy Verified 12/01/23 08:39 Review of Systems Review of Systems: All systems reviewed & are unremarkable except as noted in HPI and below PMFSH Past Medical History Medical History (Updated 12/16/24 @ 09:49 by Krystal Damon APRN) Urinary retention Phimosis History of CVA (cerebrovascular accident) History of dementia Social History Social History Smoking status: Unknown if ever smoked Alcohol intake: unknown Substance use: unknown Spiritual care concerns: No Exam Narrative: GENERAL: Ill-appearing, well-nourished, non-toxic, in no acute distress. HEAD: Normocephalic, atraumatic. NECK: Supple. No adenopathy, no masses. RESPIRATORY: Airway patent, respirations nonlabored. Clear to auscultation bilaterally, no rales, rhonchi, wheezing. CARDIOVASCULAR: Regular rate and rhythm without murmurs, rubs, or gallops. Peripheral pulses 2+ and equal bilaterally. ABDOMINAL: Soft, nontender, nondistended, no hepatosplenomegaly. Normoactive BS. MUSCULOSKELETAL: Moves all extremities. Strength/ROM intact without gross deformities. SKIN: Warm, dry, normal color. No rashes. NEURO: A&O X1. Speech garbled. Unable to complete neuro exams. PSYCHIATRIC: Flat affect. Confused. : [address] Ceballos catheter and were unsuccessful. MD attempted to place Ceballos catheter and reports he was unable to reach pt's meatus due to constriction. Course Vital Signs Vital signs: Vital Signs Temperature 37.9 C H 12/15/24 20:09 Pulse Rate 74 12/15/24 20:09 Respiratory Rate 17 12/15/24 20:09 Blood Pressure 113/52 L 12/15/24 20:09 Pulse Oximetry 96 12/15/24 20:09 Oxygen Delivery Room Air 12/15/24 20:09 Temperature 36.3 C L 12/16/24 21: Pulse Rate 66 12/16/24 21:29 Respiratory Rate 12 12/16/24 21:29 Blood Pressure 156/62 H 12/16/24 21:29 Pulse Oximetry 97 12/16/24 21:29 Oxygen Delivery Room Air 12/16/24 21:10 MDM - Nausea/Vomiting/Diarrhea MDM Narrative Medical decision making narrative: Patient is an 81-year-old male who presents with complaint is of lethargy, emesis, diarrhea. He has a history of strokes and TIAs, with the most recent TIA being 1 month ago, per his daughter. Patient's daughter reports he is presenting today similar to the way he did with his last TIA 1 month ago. She reports his 1st stroke was in June 2023. He has been living in [place] since then in the [facility]. Patient's daughter reports he has chronic UTIs and is on oral antibiotics every day. He also has a pacemaker that had a battery exchange in June 2024. Today the [place] [facility] reports he has had increased lethargy, and has been unable to keep any p.o. intake down. His daughter reports he is A&Ox1 at baseline. Upon the time of examination patient denies any pain. Labs Ordered: CBC, CMP, lactic acid, lipase, COVID/flu/RSV swab, UA Imaging Ordered: Chest x-ray, brain CT Medications Ordered: 1L NS bolus (slow infusion) Results: 2144- MD attempted to place Ceballos catheter, but was unsuccessful. Bladder scan indicates pt had 350 cc urine in his bladder. [address] Ceballos catheter for urine sample. 2430- Pt still has not urinated. Bladder scan indicates pt's bladder has 430cc of urine. Attempted to call urology for consult. Although urine sample has not been obtained, blood cultures and IV antibiotic will be ordered d/t pt's chronic UTI, mildly elevated lactate and elevated WBC. 0100-Spoke with Urology, Dr. Rivas, who will come to the ER to evaluate patient. 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 Dr. Rivas is also requesting a lac kit, 3.[employer], and the urology cart be placed at bedside. Charge nurse aware. 0130-Spoke with hospitalist who is in agreement to admit patient to the hospital. Diagnosis: Altered mental status, chronic UTI Consults: Urology Patient Education/Shared MDM: Patient's daughter is no longer, but she was called by the ER nurse to update her on her father's status of possible circumcision. Prior to her departure it was explained that patient will be admitted to the hospital for further workup on his altered mental status. She verbalized understanding and was in agreement with plan. Patient will be started on IV antibiotics here in the ER. Differential Diagnosis Differential diagnosis: Likely gastroenteritis, dehydration and other (UTI) Lab Data Attestation: I reviewed the patient's lab results. 12/15/24 20:47 12/15/24 20:47 Labs: Lab Results 12/15/24 12/15/24 12/15/24 Range/Units 20:46 20:47 21:48 WBC 10.5 H (4.5-10.0) K/mm3 RBC 3.97 L (4.6-6.20) M/mm3 Hgb 12.6 L (14.0-18.0) g/dL Hct 39.1 L (42.0-52.0) % MCV 98.5 (80-100) fl MCH 31.7 (26-34) pg MCHC 32.2 (32-36) g/dl RDW 13.1 (11.5-14.5) % Plt Count 212 (150-375) k/mm3 MPV 9.2 (7.4-10.4) fl Immature Gran % (Auto) 0.7 H (0-0.5) % Neut % (Auto) 89.6 H (45.5-73.1) % Lymph % (Auto) 2.6 L (18.3-44.2) % [place] % (Auto) 6.9 (2.6-8.5) % Eos % (Auto) 0.1 (0-4.4) % Baso % (Auto) 0.1 L (0.2-1.2) % Lymph # (Auto) 0.27 L (0.9-3.2) K/mm3 [place] # (Auto) 0.7 H (0.1-0.6) K/mm3 Eos # (Auto) 0.0 (0-0.3) K/mm3 Baso # (Auto) 0.0 (0.0-0.1) K/mm3 Abs Immat Gran (auto) 0.07 H (0.00-0.031) K/mm3 Absolute Neuts (auto) 9.4 H (1.3-6.7) K/mm3 Absolute Nucleated RBC 0.000 (0.0-0.012) K/mm3 Nucleated RBC % 0.0 (0.0-0.2) % Platelet Estimate Adequate (Adequate) Poikilocytosis 1+ Ovalocytes 1+ Schistocytes None seen Sodium 139 (137-145) mmol/L Potassium 4.4 (3.4-5.0) mmol/L Chloride 105 (98-107) mmol/L Carbon Dioxide 24 (22-30) mmol/L Anion Gap 10 (4-12) mmol/L BUN 32 H (9-20) mg/dL Creatinine 1.42 H (0.7-1.3) mg/dL Estim Creat Clear Calc 32 ml/min Estimated GFR 47 L (59 - ) Glucose 122 H (65-110) mg/dL Lactic Acid 2.1 H (0.7-2.0) mmol/L Calcium 9.3 (8.4-10.2) mg/dL Total Bilirubin 1.1 (0.2-1.3) mg/dL AST 25 (17-59) U/L ALT 33 (6-50) U/L Alkaline Phosphatase 97 (38-126) U/L C-Reactive Protein 1.6 H (<1.0) mg/dL NT-Pro-B Natriuret Pep 415 H (19.9-100) pg/mL Total Protein 7.0 (6.3-8.2) g/dL Albumin 3.9 (3.5-5.1) g/dL Lipase 42 (23-300) U/L Influenza A (RT-PCR) Negative (Negative) Influenza B (RT-PCR) Negative (Negative) RSV (RT-PCR) Negative (Negative) SARS-CoV-2 RNA (RT-PCR) Negative (Negative) 12/16/24 12/16/24 Range/Units 00:20 02:01 WBC (4.5-10.0) K/mm3 RBC (4.6-6.20) M/mm3 Hgb (14.0-18.0) g/dL Hct (42.0-52.0) % MCV (80-100) fl MCH (26-34) pg MCHC (32-36) g/dl RDW (11.5-14.5) % Plt Count (150-375) k/mm3 MPV (7.4-10.4) fl Immature Gran % (Auto) (0-0.5) % Neut % (Auto) (45.5-73.1) % Lymph % (Auto) (18.3-44.2) % [place] % (Auto) (2.6-8.5) % Eos % (Auto) (0-4.4) % Baso % (Auto) (0.2-1.2) % Lymph # (Auto) (0.9-3.2) K/mm3 [place] # (Auto) (0.1-0.6) K/mm3 Eos # (Auto) (0-0.3) K/mm3 Baso # (Auto) (0.0-0.1) K/mm3 Abs Immat Gran (auto) (0.00-0.031) K/mm3 Absolute Neuts (auto) (1.3-6.7) K/mm3 Absolute Nucleated RBC (0.0-0.012) K/mm3 Nucleated RBC % (0.0-0.2) % Platelet Estimate (Adequate) Poikilocytosis Ovalocytes Schistocytes Sodium (137-145) mmol/L Potassium (3.4-5.0) mmol/L Chloride (98-107) mmol/L Carbon Dioxide (22-30) mmol/L Anion Gap (4-12) mmol/L BUN (9-20) mg/dL Creatinine (0.7-1.3) mg/dL Estim Creat Clear Calc ml/min Estimated GFR (59 - ) Glucose (65-110) mg/dL Lactic Acid 1.7 1.5 (0.7-2.0) mmol/L Calcium (8.4-10.2) mg/dL Total Bilirubin (0.2-1.3) mg/dL AST (17-59) U/L ALT (6-50) U/L Alkaline Phosphatase (38-126) U/L C-Reactive Protein (<1.0) mg/dL NT-Pro-B Natriuret Pep (19.9-100) pg/mL Total Protein (6.3-8.2) g/dL Albumin (3.5-5.1) g/dL Lipase (23-300) U/L Influenza A (RT-PCR) (Negative) Influenza B (RT-PCR) (Negative) RSV (RT-PCR) (Negative) SARS-CoV-2 RNA (RT-PCR) (Negative) Imaging Data Attestation: I personally reviewed and interpreted this imaging study as follows: Radiologist's impression: Impressions Chest X-Ray 12/15/24 21:32 IMPRESSION: 1. Mild pulmonary edema. 2. Cardiomegaly. Head CT 12/15/24 22:57 IMPRESSION: 1. 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 Discharge Plan Discharge Clinical Impression: Altered mental state, Lethargy, Chronic urinary tract infection, Dehydration Patient Disposition: Still a Patient Condition: Stable
[2024-12-15] MEDS: SODIUM CHLORIDE 0.9% IV 1,000 ML 500 ML IV CONT (21:59)
[2024-12-15 22:05] LABS: NT Pro B Type Natriuretic Pept 415 pg/mL (19.9-100)
[2024-12-15 22:30] LABS: Influenza A QL RT-PCR Negative (Negative); Influenza B QL RT-PCR Negative (Negative); RSV RNA, RT-PCR Negative (Negative); SARS-CoV-2 RNA PCR Negative (Negative)
[2024-12-15 23:50] LABS: Reflex Lactic Acid Yes or No Add Lactic
[2024-12-16] VITALS (17 sets, daily range): BP systolic 102–156; BP diastolic 41–66; PULSE 56–86; RESP 12–20; TEMP 36.3–36.9; O2SAT 93–100; BMI 25.0
--- NOTE | 2024-12-16 00:09 | PC.NURSE ---
this RN as well as slim LOFTON attempted to straight cath pt, both attempts unsuccessful. Daughter states last time this happened urology had to come catheterize pt. Male gary applied to pt around 2229 and no urine has been produced since. EDP made aware.
[2024-12-16 00:35] LABS: Lactic Acid 1.7 mmol/L (0.7-2.0)
[2024-12-16 02:18] LABS: Lactic Acid Reflex 1.5 mmol/L (0.7-2.0)
[2024-12-16 02:20] LABS: CRP 1.6 mg/dL (<1.0)
--- NOTE | 2024-12-16 03:18 | P.HP_ITS ---
H&P: HPI History of Present Illness Date/Time: 12/16/24 03:18 Chief Complaint: Urinary retention, phimosis Narrative: Patient is an 89-year-old male who presented to the emergency department lethargy. According to the patient's daughter he has a history chronic UTIs and suppressive. He had bladder scan was over 400mL. Attempts by nursing staff and MD to place Ceballos catheter unsuccessful due to tight phimosis. Patient had not urinated since presentation to the ER and Urology was called for evaluation. [facility] Past Medical History Medical History (Updated 12/16/24 @ 03:22 by Kamryn Sotelo MD) Urinary retention Phimosis History of CVA (cerebrovascular accident) History of dementia Social History Social History Substance use: never Meds Home Medications and Allergies Home Medications ?Medication ?Instructions ?Recorded ?Confirmed ?Type cephalexin 500 mg capsule 500 mg PO Q8H 7 days #21 caps 12/01/23 Rx Allergies Allergy/AdvReac Type Severity Reaction Status Date / Time No Known Allergies Allergy Verified 12/01/23 08:39 Vital Signs Vital Signs - 24 hr 12/15/24 20:09 12/16/24 00:08 Temperature 37.9 C H Pulse Rate 74 86 Respiratory Rate 17 18 Blood Pressure 113/52 L 108/51 L Pulse Oximetry 96 95 Oxygen Delivery Room Air Exam Narrative: Patient has a weight in no acute distress. His breathing is nonlabored. His abdomen is soft nontender nondistended. Patient is an uncircumcised phallus with a tight phimosis. The glans feels normal under the skin. The patient did urinate during examination. H&P: Results Labs Labs: Short CBC 12/15/24 Range/Units 20:47 WBC 10.5 H (4.5-10.0) K/mm3 Hgb 12.6 L (14.0-18.0) g/dL Hct 39.1 L (42.0-52.0) % Plt Count 212 (150-375) k/mm3 BMP 12/15/24 20:47 Sodium 139 Potassium 4.4 Chloride 105 Carbon Dioxide 24 BUN 32 H Creatinine 1.42 H Glucose 122 H Calcium 9.3 Liver Function 12/15/24 Range/Units 20:47 Total Bilirubin 1.1 (0.2-1.3) mg/dL AST 25 (17-59) U/L ALT 33 (6-50) U/L Alkaline Phosphatase 97 (38-126) U/L Albumin 3.9 (3.5-5.1) g/dL Assessment and Plan Assessment and plan (1) Phimosis: Code(s): N47.1 - Phimosis Status: Acute (2) Urinary retention: Code(s): R33.9 - Retention of urine, unspecified Status: Acute (3) Altered mental state: Code(s): R41.82 - Altered mental status, unspecified Status: Acute Plan This is an 89-year-old gentleman with phimosis and urinary retention. His recurrent urinary tract infections may be exacerbated by his inability to empty bladder. -recommend CT scan of abdomen and pelvis to evaluate urinary anatomy -plan to take the patient to the operative room for dorsal slit circumcision, Ceballos catheter insertion, possible cystoscopy -patient to be admitted to the hospital service for observation and antibiotics
--- NOTE | 2024-12-16 04:14 | ADMGEN ---
This patient, Luis Kellogg, was admitted to 3 [facility] Surg Room 322-02. Patient/family oriented to hospital policies and general routines including ID bracelet, bed and alarms, visiting hours, pain management, procedures, bathroom and other care routines, personal items, smoking policy, room service/diet, and visiting hours. Information on how to activate the Rapid Response Team has been discussed. Patient/Family are encouraged to report perceived risks to care and to ask questions if they do not understand what they are told or what they should do.
--- NOTE | 2024-12-16 07:32 | PM.IMHP ---
H&P: HPI History of Present Illness Date/Time: 12/16/24 07:32 Chief Complaint: lethargy Narrative: 81-year-old male who presents with complaint is of lethargy, emesis, diarrhea. He has a history of strokes and TIAs, with the most recent TIA being 1 month ago, per his daughter. Patient's daughter reports he is presenting today similar to the way he did with his last TIA 1 month ago. She reports his 1st stroke was in June 2023. He has been living in [place] since then in the [facility]. Pt has chronic UTI and on antibiotics daily. He also has a pacemaker that had a battery exchange in June 2024. Today the long-term reports he has had increased lethargy, and has been unable to keep any p.o. intake down. His daughter reports he is A&Ox1 at baseline. IN ED: Labs Ordered: CBC, CMP, lactic acid, lipase, COVID/flu/RSV swab, UA Imaging Ordered: Chest x-ray, brain CT Medications Ordered: 1L NS bolus (slow infusion) Urology was consulted- recommend CT scan of abdomen and pelvis to evaluate urinary anatomy -plan to take the patient to the operative room for dorsal slit circumcision, Ceballos catheter insertion, possible cystoscopy -admitted for observation and antibiotics-which had been ordered Review of Systems Eyes: Eyes: Denies blurry vision Cardiovascular: Cardiovascular: Denies chest pain Respiratory: Respiratory: Denies chest congestion and Denies cough Genitourinary: Genitourinary: Reports dysuria [facility] Past Medical History Medical History (Updated 12/16/24 @ 09:49 by Krystal Damon APRN) Urinary retention Phimosis History of CVA (cerebrovascular accident) History of dementia Social History Social History Smoking status: Unknown if ever smoked Alcohol intake: unknown Substance use: unknown Spiritual care concerns: No Meds Home Medications and Allergies Home Medications ?Medication ?Instructions ?Recorded ?Confirmed ?Type aspirin 325 mg tablet 325 mg PO DAILY 12/16/24 12/16/24 History atorvastatin 40 mg tablet (Lipitor) 40 mg PO DAILY 12/16/24 12/16/24 History carvedilol 12.5 mg tablet (Coreg) 12.5 mg PO BID 12/16/24 12/16/24 History cephalexin 250 mg capsule 250 mg PO DAILY 12/16/24 12/16/24 History diphenhydramine 25 1 tablet PO HS PRN sleep 12/16/24 12/16/24 History mg-acetaminophen 500 mg tablet (Acetaminophen PM) finasteride 5 mg tablet (Proscar) 5 mg PO DAILY 12/16/24 12/16/24 History loratadine 10 mg tablet (Allergy 10 mg PO DAILY 12/16/24 12/16/24 History Relief (loratadine)) ondansetron HCl 4 mg tablet 4 mg PO Q6H PRN nausea and vomiting 12/16/24 12/16/24 History tamsulosin 0.4 mg capsule (Flomax) 0.4 mg PO DAILY 12/16/24 12/16/24 History Allergies Allergy/AdvReac Type Severity Reaction Status Date / Time No Known Allergies Allergy Verified 12/01/23 08:39 Vital Signs Vital Signs - 24 hr 12/15/24 20:09 12/16/24 00:08 12/16/24 03:16 Temperature 100.2 F H Pulse Rate 74 86 80 Respiratory Rate 17 18 15 Blood Pressure 113/52 L 108/51 L 102/52 L Pulse Oximetry 96 95 96 Oxygen Delivery Room Air 12/16/24 05:45 Temperature 98.4 F Pulse Rate 72 Respiratory Rate 20 Blood Pressure 134/57 L Pulse Oximetry 98 Oxygen Delivery H&P: Results Labs Labs: Short CBC 12/15/24 Range/Units 20:47 WBC 10.5 H (4.5-10.0) K/mm3 Hgb 12.6 L (14.0-18.0) g/dL Hct 39.1 L (42.0-52.0) % Plt Count 212 (150-375) k/mm3 [facility] 12/15/24 20:47 Sodium 139 Potassium 4.4 Chloride 105 Carbon Dioxide 24 BUN 32 H Creatinine 1.42 H Glucose 122 H Calcium 9.3 Liver Function 12/15/24 Range/Units 20:47 Total Bilirubin 1.1 (0.2-1.3) mg/dL AST 25 (17-59) U/L ALT 33 (6-50) U/L Alkaline Phosphatase 97 (38-126) U/L Albumin 3.9 (3.5-5.1) g/dL Assessment and Plan Assessment and plan (1) Urinary retention: Code(s): R33.9 - Retention of urine, unspecified Status: Acute (2) Chronic urinary tract infection: Code(s): N39.0 - Urinary tract infection, site not specified Status: Acute (3) Phimosis: Code(s): N47.1 - Phimosis Status: Acute Plan 89-year-old gentleman with phimosis and urinary retention. His recurrent urinary tract infections may be exacerbated by his inability to empty bladder. He does have chronic uti for which he takes daily keflex. Urology was consulted: - recommend CT scan of abdomen and pelvis to evaluate urinary anatomy -plan to take the patient to the operative room for dorsal slit circumcision, Ceballos catheter insertion, possible cystoscopy -patient to be admitted to the hospital service for observation and antibiotics Rocephin is restarted NPO for possible cystoscopy/dorsal slit circumcision, Ceballos catheter insertion with Dr Sotelo # h/o stroke will hold asa 325 mg, continue statin #htn coreg 12.5 mg bid- will restart home med Quality VTE Prophylaxis VTE prophylaxis: mechanical ordered Hospitalist [facility] Advance Care Plan I have confirmed that the patient's Advanced Care Plan is present, code status is documented, or surrogate decision maker is listed in patient medical record.: Yes Medication Reconciliation I have utilized all available resources to obtain, update and review the patients current medications (includes all prescriptions, OTC, herbals, cannabis, and nutritional supplements).: Yes
--- NOTE | 2024-12-16 08:45 | WPDHPUPDATE1 ---
History and Physical Update Update Date/Time: 12/16/24 08:45 History and Physical has been reviewed, including an updated exam of the patient. There are NO changes in the patient's condition. Risks, benefits, and alternatives have been discussed and questions answered. Patient agrees to proceed with procedure.
[2024-12-16] MEDS: BUPivacaine HCL 0.5% 10 ML AMP 20 ML INFILTRATE (08:53)
--- NOTE | 2024-12-16 09:42 | WPDANESEPPF ---
Anes - Initial Pre Proc Eval Procedure: Operation Date: 12/16/24 09:30 Proposed Procedures p Dorsal Slit Circumcision, - Kamryn Sotelo MD s Ceballos Catheter Insertion, Possible Cystoscopy - Kamryn Sotelo MD Date/Time: 12/16/24 09:42 Surgeon: Coty Barlow MD Pre Op Diagnosis: altered mental status, chronic uti Patient Data Age: 89 Gender: M Height: 1.75 m Weight: 77 kg Last Vital Signs Temp 36.8 C 12/16/24 08:32 Pulse 65 12/16/24 08:32 Resp 16 12/16/24 08:32 BP 104/41 L 12/16/24 08:32 Pulse Ox 94 12/16/24 08:32 O2 Del Method Room Air 12/16/24 08:32 Allergies Allergy/AdvReac Type Severity Reaction Status Date / Time No Known Allergies Allergy Verified 12/01/23 08:39 Home Medications ?Medication ?Instructions ?Recorded ?Confirmed ?Type aspirin 325 mg tablet 325 mg PO DAILY 12/16/24 12/16/24 History atorvastatin 40 mg tablet (Lipitor) 40 mg PO DAILY 12/16/24 12/16/24 History carvedilol 12.5 mg tablet (Coreg) 12.5 mg PO BID 12/16/24 12/16/24 History cephalexin 250 mg capsule 250 mg PO DAILY 12/16/24 12/16/24 History diphenhydramine 25 1 tablet PO HS PRN sleep 12/16/24 12/16/24 History mg-acetaminophen 500 mg tablet (Acetaminophen PM) finasteride 5 mg tablet (Proscar) 5 mg PO DAILY 12/16/24 12/16/24 History loratadine 10 mg tablet (Allergy 10 mg PO DAILY 12/16/24 12/16/24 History Relief (loratadine)) ondansetron HCl 4 mg tablet 4 mg PO Q6H PRN nausea and vomiting 12/16/24 12/16/24 History tamsulosin 0.4 mg capsule (Flomax) 0.4 mg PO DAILY 12/16/24 12/16/24 History Laboratory Tests 12/15/24 12/15/24 12/15/24 20:46 20:47 21:48 WBC 10.5 H K/mm3 (4.5-10.0) RBC 3.97 L M/mm3 (4.6-6.20) Hgb 12.6 L g/dL (14.0-18.0) Hct 39.1 L % (42.0-52.0) MCV 98.5 fl (80-100) MCH 31.7 pg (26-34) MCHC 32.2 g/dl (32-36) RDW 13.1 % (11.5-14.5) Plt Count 212 k/mm3 (150-375) MPV 9.2 fl (7.4-10.4) Immature Gran % (Auto) 0.7 H % (0-0.5) Neut % (Auto) 89.6 H % (45.5-73.1) Lymph % (Auto) 2.6 L % (18.3-44.2) [place] % (Auto) 6.9 % (2.6-8.5) Eos % (Auto) 0.1 % (0-4.4) Baso % (Auto) 0.1 L % (0.2-1.2) Lymph # (Auto) 0.27 L K/mm3 (0.9-3.2) [place] # (Auto) 0.7 H K/mm3 (0.1-0.6) Eos # (Auto) 0.0 K/mm3 (0-0.3) Baso # (Auto) 0.0 K/mm3 (0.0-0.1) Abs Immat Gran (auto) 0.07 H K/mm3 (0.00-0.031) Absolute Neuts (auto) 9.4 H K/mm3 (1.3-6.7) Absolute Nucleated RBC 0.000 K/mm3 (0.0-0.012) Nucleated RBC % 0.0 % (0.0-0.2) Platelet Estimate Adequate (Adequate) Poikilocytosis 1+ Ovalocytes 1+ Schistocytes None seen Sodium 139 mmol/L (137-145) Potassium 4.4 mmol/L (3.4-5.0) Chloride 105 mmol/L (98-107) Carbon Dioxide 24 mmol/L (22-30) Anion Gap 10 mmol/L (4-12) BUN 32 H mg/dL (9-20) Creatinine 1.42 H mg/dL (0.7-1.3) Estim Creat Clear Calc 32 ml/min Estimated GFR 47 L (59 - ) Glucose 122 H mg/dL (65-110) Lactic Acid 2.1 H mmol/L (0.7-2.0) Calcium 9.3 mg/dL (8.4-10.2) Total Bilirubin 1.1 mg/dL (0.2-1.3) AST 25 U/L (17-59) ALT 33 U/L (6-50) Alkaline Phosphatase 97 U/L (38-126) C-Reactive Protein 1.6 H mg/dL (<1.0) NT-Pro-B Natriuret Pep 415 H pg/mL (19.9-100) Total Protein 7.0 g/dL (6.3-8.2) Albumin 3.9 g/dL (3.5-5.1) Lipase 42 U/L (23-300) Influenza A (RT-PCR) Negative (Negative) Influenza B (RT-PCR) Negative (Negative) RSV (RT-PCR) Negative (Negative) SARS-CoV-2 RNA (RT-PCR) Negative (Negative) 12/16/24 12/16/24 00:20 02:01 WBC RBC Hgb Hct MCV MCH MCHC RDW Plt Count MPV Immature Gran % (Auto) Neut % (Auto) Lymph % (Auto) [place] % (Auto) Eos % (Auto) Baso % (Auto) Lymph # (Auto) [place] # (Auto) Eos # (Auto) Baso # (Auto) Abs Immat Gran (auto) Absolute Neuts (auto) Absolute Nucleated RBC Nucleated RBC % Platelet Estimate Poikilocytosis Ovalocytes Schistocytes Sodium Potassium Chloride Carbon Dioxide Anion Gap BUN Creatinine Estim Creat Clear Calc Estimated GFR Glucose Lactic Acid 1.7 mmol/L 1.5 mmol/L (0.7-2.0) (0.7-2.0) Calcium Total Bilirubin AST ALT Alkaline Phosphatase C-Reactive Protein NT-Pro-B Natriuret Pep Total Protein Albumin Lipase Influenza A (RT-PCR) Influenza B (RT-PCR) RSV (RT-PCR) SARS-CoV-2 RNA (RT-PCR) Patient hx anesthesia problems: none Family hx anesthesia problems: none Results Review: All pre-operative results and documents have been reviewed as part of the pre-operative evaluation. [facility] Past Medical History Medical History Urinary retention Phimosis History of CVA (cerebrovascular accident) History of dementia Social History Social History Smoking status: Unknown if ever smoked Alcohol intake: unknown Substance use: unknown Spiritual care concerns: No Anes - Eval Final PreProcedure Day of Procedure 12/16/24 09:42 Patient weight: normal Heart: regular rate and rhythm Lungs: decreased breath sounds Neurological: lethargic Last oral intake: >/= 8 hours ASA classification: IV Emergent: no Anesthetic plan: proceed Anesthesia type and monitoring: general GIVS and standard monitoring Results Review: All pre-operative results and documents have been reviewed as part of the pre-operative evaluation. Informed Consent: The patient's anesthetic plan and its attendant risks and benefits were discussed with the patient/family/POA. Questions were solicited and answers provided to the satisfaction of the patient/family/POA.
[2024-12-16] MEDS: ceFAZolin 2 GM/D5W 50 ML 2 GM/50 ML BAG IVPB (09:52)
[2024-12-16] MEDS: NEOMYCIN/POLYMYXIN/BACITRACIN OINTMENT 15 GM TUBE 1 APPLIC TOPICAL (10:41)
--- NOTE | 2024-12-16 10:46 | W.PM.PROC2 ---
Procedure Note - Detailed Date of Procedure 12/16/24 Pre-op Diagnosis Urinary retention, phimosis Post-op Diagnosis Same Procedure Performed dorsal slit circumcision Ceballos catheter insertion Surgeon Kamryn Sotelo MD Anesthesia MAC and Local Description of Procedure informed consent was obtained through the patient's daughter. Patient taken the operating room. He was given sedation. On examination the patient with tight phimosis and unable to retract foreskin. He was prepped and draped in the normal sterile fashion. Penile block was performed with 0.5% Marcaine without epinephrine. We then placed clamps dorsally along the phimotic foreskin and opened the skin for approximately 6cm of length. At this point the glans was easily exposed. there was no masses on the glans. There was a normal meatus. We re-prepped with Betadine. a 16 F Ceballos catheter was inserted with return of yellow urine. At this point we then cauterized all bleeding sites along the dorsal slit. The skin was then reapproximated with interrupted and running 3-0 Vicryl suture. There was good hemostasis and good cosmetic result. The compressive dressing was placed. patient taken to PACU in stable condition. Urine Output 0 Pathology None sent Complications No immediate complications Condition Stable Disposition PACU
[2024-12-16] MEDS: LACTATED RINGERS 1,000 ML 30 ML IV CONT (10:51)
[2024-12-16] MEDS: carvediloL 12.5 MG TABLET PO ×2 (12:52→21:04)
[2024-12-16] MEDS: TAMSULOSIN HCL 0.4 MG CAPSULE PO (12:52)
[2024-12-16] MEDS: LORATADINE 10 MG TABLET PO (12:53)
[2024-12-16] MEDS: FINASTERIDE 5 MG TABLET PO (12:53)
[2024-12-16] MEDS: ATORVASTATIN 40 MG TABLET PO (12:53)
[2024-12-16 18:27] LABS: Add Urine Microscopic? YES; Appearance Urine Cloudy (Clear); Bilirubin Urine Negative (Negative); Blood Urine 1+ (Negative); Color Urine Yellow (Yellow); Glucose Urine UA Negative (Negative); Ketones Urine Negative (Negative); Leukocyte Esterase Ur 3+ LEU/UL (Negative); Need Manual Microscopic Reviewed; Nitrate Urine Negative (Negative); Protein Urine 1+ mg/dL (Negative); Squamous Epithelial Cell Urine None Seen /hpf (Few); Urobilinogen Urine 0.2 mg/dL (<2.0); WBC Clumps Urine Present /HPF; WBC Urine >100 /hpf (0-3); pH Urine 5.5 (5.0-9.0)
[2024-12-16 18:36] LABS: Bacteria Urine 1+ /hpf
[2024-12-17 06:00] VITALS: BP 142/55; PULSE 58; RESP 13; TEMP 36.7; O2SAT 96
[2024-12-17] MEDS: LORATADINE 10 MG TABLET PO (09:32)
[2024-12-17] MEDS: TAMSULOSIN HCL 0.4 MG CAPSULE PO (09:32)
[2024-12-17 09:33] VITALS: PULSE 60
[2024-12-17] MEDS: ATORVASTATIN 40 MG TABLET PO (09:33)
[2024-12-17] MEDS: carvediloL 12.5 MG TABLET PO ×2 (09:33→20:10)
[2024-12-17] MEDS: FINASTERIDE 5 MG TABLET PO (09:34)
[2024-12-17 11:51] VITALS: BMI 25.0
--- NOTE | 2024-12-17 12:47 | P.PNIM_ITS ---
Progress Note: A&P Assessment and Plan (1) Urinary retention: Code(s): R33.9 - Retention of urine, unspecified Status: Acute (2) Chronic urinary tract infection: Code(s): N39.0 - Urinary tract infection, site not specified Status: Acute (3) Phimosis: Code(s): N47.1 - Phimosis Status: Acute Plan 89-year-old gentleman with phimosis and urinary retention. His recurrent urinary tract infections may be exacerbated by his inability to empty bladder. He does have chronic uti for which he takes daily keflex. Urology was consulted: - recommend CT scan of abdomen and pelvis to evaluate urinary anatomy -plan to take the patient to the operative room for dorsal slit circumcision, Mcmillan catheter insertion, possible cystoscopy -patient to be admitted to the hospital service for observation and antibiotics Rocephin is restarted NPO for possible cystoscopy/dorsal slit circumcision, Mcmillan catheter insertion with Dr Sotelo 12/16 dorsal slit circumcision, Mcmillan catheter insertion with Dr Sotelo dressing in place # h/o stroke will hold asa 325 mg, continue statin #htn coreg 12.5 mg bid- will restart home med Time Spent With Patient Time with patient: 25 - 35 minutes Subjective Date/time seen: 12/17/24 12:47 Interval history: 81-year-old male who presents with complaint is of lethargy, emesis, diarrhea. He has a history of strokes and TIAs, with the most recent TIA being 1 month ago, per his daughter. Patient's daughter reports he is presenting today similar to the way he did with his last TIA 1 month ago. She reports his 1st stroke was in June 2023. He has been living in [place] since then in the [facility] area. Pt has chronic UTI and on antibiotics daily. He also has a pacemaker that had a battery exchange in June 2024. [facility] has had increased lethargy, and has been unable to keep any p.o. intake down. His daughter reports he is A&Ox1 at baseline. IN ED: Labs Ordered: CBC, CMP, lactic acid, lipase, COVID/flu/RSV swab, UA Imaging Ordered: Chest x-ray, brain CT Medications Ordered: 1L NS bolus (slow infusion) Urology was consulted- recommend CT scan of abdomen and pelvis to evaluate urinary anatomy - plan to take the patient to the operative room for dorsal slit circumcision, Mcmillan catheter insertion, possible cystoscopy - admitted for observation and antibiotics-which had been ordered 12/17 pt is seen and examined. He is alert/oriented x 1 as a baseline. unable to obtain much information, resting with eyes closed. 1400- was told to the room as put was pulling on mcmillan and ripped dressing off. Per RN, there should be stitches -that were not found. Mittens applied for safety. Clean and dy dressing applied and urology was called for re assessment of the wound. Review of Systems Eyes: Eyes: Denies blurry vision Cardiovascular: Cardiovascular: Denies chest pain Respiratory: Respiratory: Denies chest congestion and Denies cough Genitourinary: Genitourinary: Reports dysuria Exam Narrative: APPEARANCE: Well appearing, no pain, no distress, well-nourished.confused HEAD: normocephalic, skin tear to interior left scalp. EYES: PERRLA/EOMI, conjunctivae clear. NOSE: Normal no drainage EARS:TMS clear with good light reflex. THROAT: Pharynx clear, no exudate. NECK: Supple. No adenopathy, no masses. RESPIRATORY: Airway patent, respirations nonlabored. Clear to auscultation bilaterally, no rales, rhonchi, wheezing. CARDIOVASCULAR: Regular rate and rhythm without murmurs rubs or gallops. ABDOMINAL: Soft, nontender, nondistended, normal bowel sounds MUSCULOSKELETAL: Moves all extremities. Strength/ROM intact, No edema, No calf tenderness. NEURO: Alert. Cranial nerves II through XII intact. Good gait. Good coordination SKIN: pulled dressing off, small amount of blood noted on diaper Objective Data Vital Signs Vital Signs: Vital Signs - 24 hr 12/16/24 12:52 12/16/24 12:55 12/16/24 13:00 Temperature 97.5 F L Pulse Rate 62 64 Respiratory Rate 20 Blood Pressure 112/50 L Pulse Oximetry 99 Oxygen Delivery Room Air 12/16/24 13:55 12/16/24 21:04 12/16/24 21:10 Temperature 98.1 F Pulse Rate 61 66 66 Respiratory Rate 20 20 Blood Pressure 126/58 L Pulse Oximetry 100 100 Oxygen Delivery Room Air 12/16/24 21:29 12/17/24 06:00 12/17/24 09:33 Temperature 97.4 F L 98.1 F Pulse Rate 66 58 L 60 Respiratory Rate 12 13 Blood Pressure 156/62 H 142/55 H Pulse Oximetry 97 96 Oxygen Delivery Intake/Output Intake/Output: Intake & Output 12/14/24 12/15/24 12/16/24 12/17/24 23:59 23:59 23:59 23:59 Intake Total 2310 880 Output Total 0 750 675 Balance 0 1560 205 Meds/Results Medications: Active Medications Generic Name Dose Route Start Last Admin Trade Name Tevin PRN Reason Stop Dose Admin Atorvastatin Calcium 40 mg 12/16/24 10:00 12/17/24 09:33 Atorvastatin 40 Mg Tablet PO 40 mg DAILY PHYLICIA Administration Carvedilol 12.5 mg 12/16/24 10:00 12/17/24 09:33 Carvedilol 12.5 Mg Tablet PO 12.5 mg Q12HR PHYLICIA Administration Finasteride 5 mg 12/16/24 10:00 12/17/24 09:34 Finasteride 5 Mg Tablet PO 5 mg DAILY PHYLICIA Administration Loratadine 10 mg 12/16/24 10:00 12/17/24 09:32 Loratadine 10 Mg Tablet PO 10 mg DAILY PHYLICIA Administration Tamsulosin HCl 0.4 mg 12/16/24 10:00 12/17/24 09:32 Tamsulosin Hcl 0.4 Mg Capsule PO 0.4 mg DAILY PHYLICIA Administration Radiology Results: ITS Impressions Chest X-Ray 12/15/24 21:32 IMPRESSION: 1. Mild pulmonary edema. 2. Cardiomegaly. Head CT 12/15/24 22:57 IMPRESSION: 1. 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 Labs Labs: Laboratory Results - last 24 hr 12/16/24 17:53 Urine Color Yellow Urine Appearance Cloudy H Urine pH 5.5 Ur Specific [place] 1.020 Urine Protein 1+ H Urine Glucose (UA) Negative Urine Ketones Negative Ur Blood (Man) 1+ H Urine Nitrate Negative Urine Bilirubin Negative Urine Urobilinogen 0.2 Add Ur Microanalysis Reviewed Leukocyte Esterase Rfl 3+ H Urine RBC 3-5 H Urine WBC >100 H Urine WBC Clumps Present H Ur Squamous Epith Cells None seen Urine Bacteria 1+ Urine Casts 11-20 Quality VTE Prophylaxis VTE prophylaxis: mechanical ordered
--- NOTE | 2024-12-17 13:20 | WPDANESPN ---
Anes - Prog Note Post-Op Date/Time: 12/17/24 13:20 Vital Signs: Last Vital Signs Temp 36.7 C 12/17/24 06:00 Pulse 60 12/17/24 09:33 Resp 13 12/17/24 06:00 BP 142/55 H 12/17/24 06:00 Pulse Ox 96 12/17/24 06:00 O2 Del Method Room Air 12/17/24 08:00 Pain Score (VAS): 2 I/O: Intake & Output 12/16/24 12/17/24 12/17/24 23:59 07:59 15:59 Intake Total 250 400 480 Output Total 250 450 225 Balance 0 -50 255 Laboratory Tests 12/15/24 20:47 12/15/24 20:47 12/16/24 17:53 Urine Color Yellow Urine Appearance Cloudy H Urine pH 5.5 Ur Specific [place] 1.020 Urine Protein 1+ H Urine Glucose (UA) Negative Urine Ketones Negative Ur Blood (Man) 1+ H Urine Nitrate Negative Urine Bilirubin Negative Urine Urobilinogen 0.2 Add Ur Microanalysis Reviewed Leukocyte Esterase Rfl 3+ H Urine RBC 3-5 H Urine WBC >100 H Urine WBC Clumps Present H Ur Squamous Epith Cells None seen Urine Bacteria 1+ Urine Casts 11-20 Microbiology 12/16/24 02:01 Blood Blood Culture - Preliminary 12/16/24 01:47 Blood Blood Culture - Preliminary Patient Feedback: Patient satisfied with anesthetic care.
[2024-12-17 14:00] VITALS: BP 132/61; PULSE 69; RESP 20; TEMP 36.7; O2SAT 98
--- NOTE | 2024-12-17 16:28 | P.PNUR_ITS ---
Progress Note: A&P Assessment and Plan (1) Urinary retention: Code(s): R33.9 - Retention of urine, unspecified Status: Acute Assessment and Plan: - Currently managed with indwelling Ceballos (2) Phimosis: Code(s): N47.1 - Phimosis Status: Acute Assessment and Plan: - POD1 circumcision Plan - Penile surgical incision healing appropriately - Continue to apply Neosporin ointment to affected area BID - Void trial today. Patient high risk for pulling out catheter / urethral trauma due to advanced dementia. Would avoid Ceballos placement in the future - Anticipate discharge back to [facility] tomorrow Subjective Subjective Date/Time Seen: 12/17/24 16:28 Interval history: NAEO; Patient pleasantly confused. Daughter at bedside assisting with meal. 89yoM with hx dementia, POD1 circumcision for severe phimosis and acute urinary retention. Per bedside RN, patient has been tugging at his Ceballos catheter. Exam Const: General: comfortable and no acute distress Resp: Effort & Inspection: normal respiratory effort : Other: s/p circumcision 12/16/24 with post-op inflammation as expected Urinary Catheter: Urinary Catheter: patent and draining and urine pink Objective Data Vital Signs Vital Signs: Vital Signs - 24 hr 12/16/24 21:04 12/16/24 21:10 12/16/24 21:29 Temperature 97.4 F L Pulse Rate 66 66 66 Respiratory Rate 20 12 Blood Pressure 156/62 H Pulse Oximetry 100 97 Oxygen Delivery Room Air 12/17/24 06:00 12/17/24 08:00 12/17/24 09:33 Temperature 98.1 F Pulse Rate 58 L 60 Respiratory Rate 13 Blood Pressure 142/55 H Pulse Oximetry 96 Oxygen Delivery Room Air 12/17/24 14:00 Temperature 98.1 F Pulse Rate 69 Respiratory Rate 20 Blood Pressure 132/61 Pulse Oximetry 98 Oxygen Delivery Intake/Output Intake/Output: Intake & Output 12/14/24 12/15/24 12/16/24 12/17/24 23:59 23:59 23:59 23:59 Intake Total 2310 880 Output Total 0 750 675 Balance 0 1560 205 Meds/Results Medications: Active Medications Generic Name Dose Route Start Last Admin Trade Name Freq PRN Reason Stop Dose Admin Atorvastatin Calcium 40 mg 12/16/24 10:00 12/17/24 09:33 Atorvastatin 40 Mg Tablet PO 40 mg DAILY PHYLICIA Administration Carvedilol 12.5 mg 12/16/24 10:00 12/17/24 09:33 Carvedilol 12.5 Mg Tablet PO 12.5 mg Q12HR PHYLICIA Administration Finasteride 5 mg 12/16/24 10:00 12/17/24 09:34 Finasteride 5 Mg Tablet PO 5 mg DAILY PHYLICIA Administration Loratadine 10 mg 12/16/24 10:00 12/17/24 09:32 Loratadine 10 Mg Tablet PO 10 mg DAILY PHYLICIA Administration Lorazepam 0.25 mg 12/17/24 13:34 Lorazepam Inj (*Crx) 2 Mg/Ml Vial IV PUSH Q6H PRN Anxiety Tamsulosin HCl 0.4 mg 12/16/24 10:00 12/17/24 09:32 Tamsulosin Hcl 0.4 Mg Capsule PO 0.4 mg DAILY PHYLICIA Administration Radiology Results: ITS Impressions Chest X-Ray 12/15/24 21:32 IMPRESSION: 1. Mild pulmonary edema. 2. Cardiomegaly. Head CT 12/15/24 22:57 IMPRESSION: 1. 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 Labs Labs: Laboratory Results - last 24 hr 12/16/24 17:53 Urine Color Yellow Urine Appearance Cloudy H Urine pH 5.5 Ur Specific [place] 1.020 Urine Protein 1+ H Urine Glucose (UA) Negative Urine Ketones Negative Ur Blood (Man) 1+ H Urine Nitrate Negative Urine Bilirubin Negative Urine Urobilinogen 0.2 Add Ur Microanalysis Reviewed Leukocyte Esterase Rfl 3+ H Urine RBC 3-5 H Urine WBC >100 H Urine WBC Clumps Present H Ur Squamous Epith Cells None seen Urine Bacteria 1+ Urine Casts 11-20
[2024-12-17 20:10] VITALS: PULSE 76; PULSE 84; RESP 18; O2SAT 97
[2024-12-17 21:49] VITALS: BP 155/67; PULSE 76; RESP 18; TEMP 37.2; O2SAT 97
[2024-12-18 05:31] VITALS: BP 112/46; PULSE 58; RESP 16; TEMP 36.2; O2SAT 98
[2024-12-18 08:21] VITALS: PULSE 56
[2024-12-18] MEDS: carvediloL 12.5 MG TABLET PO ×2 (08:21→20:22)
[2024-12-18] MEDS: ATORVASTATIN 40 MG TABLET PO (08:21)
[2024-12-18] MEDS: LORATADINE 10 MG TABLET PO (08:21)
[2024-12-18] MEDS: TAMSULOSIN HCL 0.4 MG CAPSULE PO (08:21)
[2024-12-18] MEDS: FINASTERIDE 5 MG TABLET PO (08:23)
[2024-12-18] MEDS: NEOMYCIN/POLYMYXIN/BACITRACIN OINTMENT PACKET 1 PACKET TOPICAL ×2 (10:18→21:10)
--- NOTE | 2024-12-18 10:31 | P.PNUR_ITS ---
Progress Note: A&P Assessment and Plan (1) Urinary retention: Code(s): R33.9 - Retention of urine, unspecified Status: Acute Assessment and Plan: - 2/2 severe phimosis - Ceballos out 12/17/24 - Check PVR bladder scan after next void (2) Phimosis: Code(s): N47.1 - Phimosis Status: Acute Assessment and Plan: - POD2 emergent circumcision with Dr. Sotelo Plan - Penile surgical incision healing appropriately, less swollen today - Neosporin ointment to affected area BID x7 days - Patient high risk for pulling out catheter / urethral trauma due to advanced dementia. Would avoid Ceballos placement in the future. - Check PVR bladder scan after next void - Anticipate discharge back to [facility] care facility today Subjective Subjective Date/Time Seen: 12/18/24 10:31 Interval history: NAEO; Patient comfortable on exam. Pleasantly confused. No family present. Penile surgical site evaluated -- much less swollen today. Nontender to touch. Incontinent of urine overnight. Please check PVR bladder scan to make sure he's not retaining urine. Per daughter, he was continent of urine most of the time prior to hospital admission. Exam Const: General: comfortable and no acute distress Resp: Effort & Inspection: normal respiratory effort : Other: s/p circumcision 12/16/24 with post-op inflammation, improved from yesterday Urinary Catheter: Urinary Catheter: urine pink Objective Data Vital Signs Vital Signs: Vital Signs - 24 hr 12/17/24 14:00 12/17/24 20:10 12/17/24 20:10 Temperature 98.1 F Pulse Rate 69 84 76 Respiratory Rate 20 18 Blood Pressure 132/61 Pulse Oximetry 98 97 Oxygen Delivery Room Air 12/17/24 21:49 12/18/24 05:31 12/18/24 08:21 Temperature 98.9 F 97.2 F L Pulse Rate 76 58 L 56 L Respiratory Rate 18 16 Blood Pressure 155/67 H 112/46 L Pulse Oximetry 97 98 Oxygen Delivery Intake/Output Intake/Output: Intake & Output 12/15/24 12/16/24 12/17/24 12/18/24 23:59 23:59 23:59 23:59 Intake Total 2310 1300 360 Output Total 0 750 975 Balance 0 1560 325 360 Meds/Results Medications: Active Medications Generic Name Dose Route Start Last Admin Trade Name Freq PRN Reason Stop Dose Admin Atorvastatin Calcium 40 mg 12/16/24 10:00 12/18/24 08:21 Atorvastatin 40 Mg Tablet PO 40 mg DAILY PHYLICIA Administration Carvedilol 12.5 mg 12/16/24 10:00 12/18/24 08:21 Carvedilol 12.5 Mg Tablet PO 12.5 mg Q12HR PHYLICIA Administration Finasteride 5 mg 12/16/24 10:00 12/18/24 08:23 Finasteride 5 Mg Tablet PO 5 mg DAILY PHYLICIA Administration Loratadine 10 mg 12/16/24 10:00 12/18/24 08:21 Loratadine 10 Mg Tablet PO 10 mg DAILY PHYLICIA Administration Lorazepam 0.25 mg 12/17/24 13:34 Lorazepam Inj (*Crx) 2 Mg/Ml Vial IV PUSH Q6H PRN Anxiety Neomycin/Polymyxin/Bacitracin 1 packet 12/18/24 09:30 12/18/24 10:18 Neomycin/Polymyxin/Bacitracin Ointment Packet TOPICAL 1 packet Q12HR PHYLICIA Administration Tamsulosin HCl 0.4 mg 12/16/24 10:00 12/18/24 08:21 Tamsulosin Hcl 0.4 Mg Capsule PO 0.4 mg DAILY PHYLICIA Administration Radiology Results: ITS Impressions Chest X-Ray 12/15/24 21:32 IMPRESSION: 1. Mild pulmonary edema. 2. Cardiomegaly. Head CT 12/15/24 22:57 IMPRESSION: 1. 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
[2024-12-18 14:00] VITALS: BP 130/60; PULSE 58; RESP 18; TEMP 36.8; O2SAT 100
--- NOTE | 2024-12-18 15:15 | PM.IMPN ---
Progress Note: A&P Assessment and Plan (1) Urinary retention: Code(s): R33.9 - Retention of urine, unspecified Status: Acute (2) Chronic urinary tract infection: Code(s): N39.0 - Urinary tract infection, site not specified Status: Acute (3) Phimosis: Code(s): N47.1 - Phimosis Status: Acute Plan 89-year-old gentleman with phimosis and urinary retention. His recurrent urinary tract infections may be exacerbated by his inability to empty bladder. He does have chronic uti for which he takes daily keflex. Urology was consulted: - recommend CT scan of abdomen and pelvis to evaluate urinary anatomy -plan to take the patient to the operative room for dorsal slit circumcision, Ceballos catheter insertion, possible cystoscopy -patient to be admitted to the hospital service for observation and antibiotics 12/18 urology is following: Penile surgical incision healing appropriately, less swollen today - Neosporin ointment to affected area BID x7 days - Patient high risk for pulling out catheter / urethral trauma due to advanced dementia. Would avoid Ceballos placement in the future. - Check PVR bladder scan after next void - Anticipate discharge back to [facility] care facility today we will watch him overnight to ensure he voids ok and incision continues to heal and discharge tomorrow # h/o stroke will hold asa 325 mg, continue statin #htn coreg 12.5 mg bid- will restart home med Time Spent With Patient Time with patient: 25 - 35 minutes Subjective Date/time seen: 12/18/24 15:15 Interval history: NAEO; Patient comfortable on exam. Pleasantly confused. No family present. Penile surgical site evaluated -- much less swollen today. Nontender to touch. Incontinent of urine overnight. Please check PVR bladder scan to make sure he's not retaining urine. Per daughter, he was continent of urine most of the time prior to hospital admission. Review of Systems Eyes: Eyes: Denies blurry vision Cardiovascular: Cardiovascular: Denies chest pain Respiratory: Respiratory: Denies chest congestion and Denies cough Genitourinary: Genitourinary: Reports dysuria Exam Narrative: APPEARANCE: Well appearing, no pain, no distress, well-nourished.confused HEAD: normocephalic, skin tear to interior left scalp. EYES: PERRLA/EOMI, conjunctivae clear. NOSE: Normal no drainage EARS:TMS clear with good light reflex. THROAT: Pharynx clear, no exudate. NECK: Supple. No adenopathy, no masses. RESPIRATORY: Airway patent, respirations nonlabored. Clear to auscultation bilaterally, no rales, rhonchi, wheezing. CARDIOVASCULAR: Regular rate and rhythm without murmurs rubs or gallops. ABDOMINAL: Soft, nontender, nondistended, normal bowel sounds MUSCULOSKELETAL: Moves all extremities. Strength/ROM intact, No edema, No calf tenderness. NEURO: Alert. Cranial nerves II through XII intact. Good gait. Good coordination SKIN: pulled dressing off, small amount of blood noted on diaper Objective Data Vital Signs Vital Signs: Vital Signs - 24 hr 12/17/24 20:10 12/17/24 20:10 12/17/24 21:49 Temperature 98.9 F Pulse Rate 84 76 76 Respiratory Rate 18 18 Blood Pressure 155/67 H Pulse Oximetry 97 97 Oxygen Delivery Room Air 12/18/24 05:31 12/18/24 08:20 12/18/24 08:21 Temperature 97.2 F L Pulse Rate 58 L 56 L Respiratory Rate 16 Blood Pressure 112/46 L Pulse Oximetry 98 Oxygen Delivery Room Air 12/18/24 14:00 Temperature 98.3 F Pulse Rate 58 L Respiratory Rate 18 Blood Pressure 130/60 Pulse Oximetry 100 Oxygen Delivery Intake/Output Intake/Output: Intake & Output 12/15/24 12/16/24 12/17/24 12/18/24 23:59 23:59 23:59 23:59 Intake Total 2310 1300 600 Output Total 0 750 975 Balance 0 1560 325 600 Meds/Results Medications: Active Medications Generic Name Dose Route Start Last Admin Trade Name Freq PRN Reason Stop Dose Admin Atorvastatin Calcium 40 mg 12/16/24 10:12/18/24 08:21 Atorvastatin 40 Mg Tablet PO 40 mg DAILY PHYLICIA Administration Carvedilol 12.5 mg 12/16/24 10:12/18/24 08:21 Carvedilol 12.5 Mg Tablet PO 12.5 mg Q12HR PHYLICIA Administration Finasteride 5 mg 12/16/24 10:00 12/18/24 08:23 Finasteride 5 Mg Tablet PO 5 mg DAILY PHYLICIA Administration Loratadine 10 mg 12/16/24 10:12/18/24 08:21 Loratadine 10 Mg Tablet PO 10 mg DAILY PHYLICIA Administration Lorazepam 0.25 mg 12/17/24 13:34 Lorazepam Inj (*Crx) 2 Mg/Ml Vial IV PUSH Q6H PRN Anxiety Neomycin/Polymyxin/Bacitracin 1 packet 12/18/24 09:30 12/18/24 10:18 Neomycin/Polymyxin/Bacitracin Ointment Packet TOPICAL 1 packet Q12HR PHYLICIA Administration Tamsulosin HCl 0.4 mg 12/16/24 10:00 12/18/24 08:21 Tamsulosin Hcl 0.4 Mg Capsule PO 0.4 mg DAILY PHYLICIA Administration Radiology Results: ITS Impressions Chest X-Ray 12/15/24 21:32 IMPRESSION: 1. Mild pulmonary edema. 2. Cardiomegaly. Head CT 12/15/24 22:57 IMPRESSION: 1. 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 Quality VTE Prophylaxis VTE prophylaxis: mechanical ordered
[2024-12-18 20:10] VITALS: PULSE 62; RESP 14; O2SAT 95
[2024-12-18 20:22] VITALS: PULSE 82
[2024-12-18 21:43] VITALS: BP 141/62; PULSE 62; RESP 14; TEMP 36.4; O2SAT 95
[2024-12-19 05:13] VITALS: BP 128/65; PULSE 57; RESP 16; TEMP 36.3; O2SAT 100
[2024-12-19] MEDS: TAMSULOSIN HCL 0.4 MG CAPSULE PO (07:50)
[2024-12-19] MEDS: carvediloL 12.5 MG TABLET PO (07:50)
[2024-12-19] MEDS: LORATADINE 10 MG TABLET PO (07:50)
[2024-12-19] MEDS: FINASTERIDE 5 MG TABLET PO (07:50)
[2024-12-19] MEDS: ATORVASTATIN 40 MG TABLET PO (07:50)
[2024-12-19 08:00] VITALS: PULSE 57; RESP 16; O2SAT 100
[2024-12-19] MEDS: NEOMYCIN/POLYMYXIN/BACITRACIN OINTMENT PACKET 1 PACKET TOPICAL (11:52)
--- NOTE | 2024-12-19 13:24 | P.DS_ITS ---
DS: Admitting Diagnosis Discharge Date 12/19 Admitting Diagnosis urinary retention DS: Discharge Diagnosis Discharge Diagnosis (1) Urinary retention: Code(s): R33.9 - Retention of urine, unspecified Status: Acute (2) Chronic urinary tract infection: Code(s): N39.0 - Urinary tract infection, site not specified Status: Acute (3) Phimosis: Code(s): N47.1 - Phimosis Status: Acute DS: Summary Hospital Course Hospital Course: 89-year-old gentleman with phimosis and urinary retention. His recurrent urinary tract infections may be exacerbated by his inability to empty bladder. He does have chronic uti for which he takes daily keflex. Urology was consulted. Pt was taken to OR 12/16 for dorsal slit circumcision, Mcmillan catheter insertion. Initially he was staretd on antibiotics for possible UTI but later on, stopped- ua showed no growth. He can continue taking his routine keflex as before and f/u with urology for close monitoring. # urinary retention # phimosis S/p circumcision for severe phimosis and acute urinary retention. Per bedside RN, patient has been tugging at his Mcmillan catheter- mcmillan was d/eddie-try to avoid it. voiding ok 12/18 ok with urology to discharge back to facility Penile surgical incision healing appropriately, less swollen today - Neosporin ointment to affected area BID x7 days - Patient high risk for pulling out catheter / urethral trauma due to advanced dementia. Would avoid Mcmillan placement in the future. - Check PVR bladder scan after next void - Anticipate discharge back to [facility] care facility today we will watch him overnight to ensure he voids ok and incision continues to heal and discharge tomorrow # h/o stroke asa 325 mg, continue statin- no new changes #htn coreg 12.5 mg bid- no new changes Status at Discharge Functional status at discharge: bed bound Overall status at discharge: patient is progressing back to baseline Time Spent with Patient Time attestation: Total time spent providing and/or coordinating discharge services: Time spent: Greater than 30 minutes Exam Narrative: APPEARANCE: Well appearing, no pain, no distress, well-nourished.confused HEAD: normocephalic, skin tear to interior left scalp. EYES: PERRLA/EOMI, conjunctivae clear. NOSE: Normal no drainage EARS:TMS clear with good light reflex. THROAT: Pharynx clear, no exudate. NECK: Supple. No adenopathy, no masses. RESPIRATORY: Airway patent, respirations nonlabored. Clear to auscultation b ilaterally, no rales, rhonchi, wheezing. CARDIOVASCULAR: Regular rate and rhythm without murmurs rubs or gallops. ABDOMINAL: Soft, nontender, nondistended, normal bowel sounds MUSCULOSKELETAL: Moves all extremities. Strength/ROM intact, No edema, No calf tenderness. NEURO: Alert. Cranial nerves II through XII intact. Good gait. Good coordination SKIN: incision healing well. continue with Neosporin DS: Data Data Completed and Pending Completed studies during hospitalization: chest xray, head ct Labs on day of discharge: Preliminary micro results at discharge 12/16/24 02:01 Blood Culture - Preliminary Blood 12/16/24 01:47 Blood Culture - Preliminary Blood Discharge Plan Discharge Attending physician on discharge: John Zarate Consulting providers: Kamryn Sotelo Discharging Clinician: Krystal Damon Patient Disposition: [facility]/Asst Living Activity: other - see discharge instructions Diet: as tolerated Wound Care Instructions: follow printed instructions Discharge Instructions: You were admitted to the hospital. Urology saw you and you had circumcision for severe phimosis and acute urinary retention. [facility] urology instructions: - Neosporin ointment to affected area BID x7 days - you are at high risk for pulling out catheter / urethral trauma due to advanced dementia. Would avoid Mcmillan placement in the future. Patient Instructions: Antibiotic Form Patient Language: Maldivian Stand Alone Forms: General Discharge Information Follow-up/Referrals: Kamryn Sotelo MD [Physician] - 2 Weeks Discharge Medications: New Triple Antibiotic 3.5-400-5,000 [id number] Ointment In Packet 1 applic topical Q12HR 7 Days Qty: 1 0RF Rx Instructions: Neosporin ointment to affected area BID x7 days Continued cephalexin 250 mg capsule 250 mg PO DAILY diphenhydramine-acetaminophen [Acetaminophen PM] 25-500 mg tablet 1 tablet PO HS PRN (Reason: sleep) loratadine [Allergy Relief (loratadine)] 10 mg tablet 10 mg PO DAILY aspirin 325 mg tablet 325 mg PO DAILY tamsulosin [Flomax] 0.4 mg capsule 0.4 mg PO DAILY finasteride [Proscar] 5 mg tablet 5 mg PO DAILY carvedilol [Coreg] 12.5 mg tablet 12.5 mg PO BID Rx Instructions: must administer with a meal/food atorvastatin [Lipitor] 40 mg tablet 40 mg PO DAILY ondansetron HCl 4 mg tablet 4 mg PO Q6H PRN (Reason: nausea and vomiting) Date of admission: 12/16/24 09:28 Primary Care Provider: UNKNOWN,DOCTOR Admitting Provider: Coty Barlow V. Attending physician on admission: Coty Barlow V. Condition: Stable Quality VTE Prophylaxis VTE prophylaxis: mechanical ordered Hospitalist MIPS Heart Failure (Exclusion) Patient has history of Heart Transplant or Left Ventricular Assistive Device?: No IF YES, STOP HERE Heart Failure (Qualifier) Patient has current or prior documentation of LVEF less than or equal to 40%, or mod/servere depressed LVSF?: No IF NO, STOP HERE
[2024-12-19 14:00] VITALS: BP 142/68; PULSE 62; RESP 18; TEMP 36.8; O2SAT 98
== END 2024-12-19 17:40 | DRG 728 ==
LOC: ANHED 12-16 01:43 → ANH3MEDSUR 12-16 03:19
PROVIDERS: Urology; Admitting Provider Internal Medicine; Emergency Provider Registered Nurse; Visit Provider General Practice
PROC: 0VTTXZZ Resection of Prepuce, External Approach (ICD-10-PCS; CPT 54161; principal; 2024-12-16 09:30)
PROC: 0TJB8ZZ Inspection of Bladder, Via Natural or Artificial Opening Endoscopic (ICD-10-PCS; CPT 52000; 2024-12-16 09:30)
DX: N47.1 Phimosis (principal); N39.0 Urinary tract infection, site not specified; R33.9 Retention of urine, unspecified; I10 Essential (primary) hypertension; F03.90 Unspecified dementia, unspecified severity, without behavioral disturbance, psychotic disturbance, mood disturbance, and anxiety; Z20.822 Contact with and (suspected) exposure to COVID-19; Z95.0 Presence of cardiac pacemaker; Z86.73 Personal history of transient ischemic attack (TIA), and cerebral infarction without residual deficits; Z79.82 Long term (current) use of aspirin
CPT/HCPCS: 36415; 70450; 71045; 80053; 81001; 83605; 83690; 83880; 85025; 86140; 87040; 87086; 87637; 96365; 99285; A9270; G0378; J0690; J0696; J2003; J2704; J3010; J7030; J7120

== ENCOUNTER 2025-02-09 18:17 | Emergency (ER) | payer MEDICARE, BC, SELFPAY ==
--- NOTE | ~2025-02-09 | XR_ITS ---
EXAM: XR hip BI 2V w AP pelvis DATE: 02/09/2025 19:22 HISTORY: trauma . COMPARISON: 06/30/2023. FINDINGS: Osteopenia. Lumbar degenerative disc disease. Bilateral hip osteoarthritis. Scattered pelv ic and hip enthesopathy. No fracture or dislocation. Scattered vascular calcifications. IMPRESSION: No acute osseous finding in the pelvis or bilateral hips. Reviewed, dictated and finalized at location K.
--- NOTE | ~2025-02-09 | CT_ITS ---
EXAMINATION: CT brain wo con DATE: 02/09/2025 19:31 INDICATION: trauma . TECHNIQUE: Computed tomography (CT) of the head was performed without intravenous contrast. The mA wa s adjusted according to patient size. Iterative reconstruction technique was employed. The dose-lengt h product was 605.33 mGy-cm. COMPARISON: 12/07/2024. FINDINGS: No acute intracranial hemorrhage or extra-axial fluid collection. No hydrocephalus, mass, or herniation. No acute ischemic infarct. Unremarkable dural venous sinus attenuation. No acute osseous abnormality. Left craniotomy defect. Right maxillary and ethmoid mucosal thickening, trace right mastoid fluid, the remaining aerated spac es are clear. Moderate atrophy and chronic white matter change. Atherosclerotic intracranial calcification. Bilater al lens replacements. Chronic left frontal lobe encephalomalacia. IMPRESSION: No acute intracranial process. Reviewed, dictated and finalized at location K.
--- NOTE | ~2025-02-09 | XR_ITS ---
EXAM: [id number] DATE: 02/09/2025 19:23 HISTORY: knee pain . COMPARISON: None available. FINDINGS: Decreased mineralization. No fracture or dislocation. No lytic or blastic lesion. Mild kne e joint osteoarthritis. No erosion or periosteal change. Trace knee joint effusion. Scattered vascula r calcifications. A linear opaque foreign body is present in the frontal view and not seen in the lat eral view, representing external artifact. IMPRESSION: No acute osseous finding in the left knee. Reviewed, dictated and finalized at location K.
--- NOTE | ~2025-02-09 | CT_ITS ---
EXAMINATION: CT cervical spine wo con DATE: 02/09/2025 19:31 INDICATION: trauma TECHNIQUE: Computed tomography (CT) of the cervical spine was performed without intravenous contrast. Automated exposure control and iterative reconstruction technique were employed. The dose-length pro duct was 332.67 mGy-cm. COMPARISON: 11/23/2023. FINDINGS: Vertebral Body Alignment: Reversed cervical lordosis. Stable grade 1 anterolisthesis at C4-5. Craniocervical and atlantoaxial alignment: Mild degenerative change. Alignment intact. Osseous structures/fracture: Scattered lytic lesions in the spine, example lesions in the posterior e lements of C3 and the C3-C6 vertebral bodies. No evidence of acute fracture. Cervical soft tissues: The paraspinal soft tissues planes are maintained. Biapical pleural scarring. Patchy groundglass opacities in the upper lungs. Circumscribed mostly soft tissue density ovoid 2.8 c m subcutaneous lesion in the left posterior neck. Degenerative changes: Multilevel degenerative disc disease and facet arthropathy. No severe central c anal or neural foraminal narrowing. IMPRESSION: No acute fracture or traumatic malalignment in the cervical spine. Redemonstration of lytic lesions in the spine as can be seen with metastatic disease or multiple myel tabitha. These lesions appear grossly stable since 2022. Patchy groundglass opacities in the lungs may represent edema or mosaic attenuation. 2.8 cm ovoid subcutaneous mass in the left posterior neck soft tissues. There has been slow interval growth since 2022. Reviewed, dictated and finalized at [facility]. IMPRESSION: No acute fracture or traumatic malalignment in the cervical spine. Redemonstration of lytic lesions in the spine as can be seen with metastatic di sease or multiple myeloma. These lesions appear grossly stable since 2022. Patchy groundglass opacities in the lungs may represent edema or mosaic attenua tion. 2.8 cm ovoid subcutaneous mass in the left posterior neck soft tissues. There h as been slow interval growth since 2022.
[2025-02-09 18:18] VITALS: BP 153/58; PULSE 81; RESP 14; TEMP 36.7; O2SAT 99
--- NOTE | 2025-02-09 18:51 | ED_ITS ---
HPI - General Adult General Chief complaint: Fall Stated complaint: fall Time Seen by Provider: 02/09/25 18:26 History of Present Illness HPI narrative: 89-year-old male presents to the emergency department for evaluation after having a ground level fall. Patient is A&O times 0. Patient had been complaining of hip pain at the facility but when EMS arrived patient denies any complaints. Patient is unable to state whether he struck his head or has neck pain. Patient states he does have some tenderness to the left knee. Related Data Home Medications ?Medication ?Instructions ?Recorded ?Confirmed ?Last Taken ?Type aspirin 325 mg tablet 325 mg PO DAILY 12/16/24 12/16/24 12/15/24 08:00 History atorvastatin 40 mg tablet (Lipitor) 40 mg PO DAILY 12/16/24 12/16/24 12/15/24 18:00 History carvedilol 12.5 mg tablet (Coreg) 12.5 mg PO BID 12/16/24 12/16/24 12/15/24 21:00 History cephalexin 250 mg capsule 250 mg PO DAILY 12/16/24 12/16/24 12/15/24 08:00 History diphenhydramine 25 1 tablet PO HS PRN sleep 12/16/24 12/16/24 12/15/24 21:00 History mg-acetaminophen 500 mg tablet (Acetaminophen PM) finasteride 5 mg tablet (Proscar) 5 mg PO DAILY 12/16/24 12/16/24 12/15/24 08:00 History loratadine 10 mg tablet (Allergy 10 mg PO DAILY 12/16/24 12/16/24 12/15/24 08:00 History Relief (loratadine)) ondansetron HCl 4 mg tablet 4 mg PO Q6H PRN nausea and vomiting 12/16/24 12/16/24 Unknown History tamsulosin 0.4 mg capsule (Flomax) 0.4 mg PO DAILY 12/16/24 12/16/24 12/15/24 History Allergies Allergy/AdvReac Type Severity Reaction Status Date / Time No Known Allergies Allergy Verified 02/09/25 18:26 Review of Systems Review of Systems: All systems reviewed & are unremarkable except as noted in HPI and below PMFSH Past Medical History Medical History (Updated 02/09/25 @ 21:07 by Godfrey Pendleton MD) Urinary retention Phimosis History of CVA (cerebrovascular accident) History of dementia Social History Social History Smoking status: Unknown if ever smoked Alcohol intake: unknown Substance use: unknown Spiritual care concerns: No Exam Narrative: APPEARANCE: Well appearing, no pain, no distress, well-nourished. HEAD: normocephalic, atraumatic. EYES: PERRLA/EOMI, conjunctivae clear. NOSE: Normal no drainage EARS:TMS clear with good light reflex. THROAT: Pharynx clear, no exudate. NECK: Supple. No adenopathy, no masses. RESPIRATORY: Airway patent, respirations nonlabored. Clear to auscultation bilaterally, no rales, rhonchi, wheezing. CARDIOVASCULAR: Regular rate and rhythm without murmurs rubs or gallops. ABDOMINAL: Soft, nontender, nondistended, normal bowel sounds MUSCULOSKELETAL: Mild tenderness with abduction of the left hip, complaint of tenderness to left NEURO: Confused SKIN: Warm, dry. Normal Color Course Vital Signs Vital signs: Vital Signs Temperature 98.0 F 02/09/25 18:18 Pulse Rate 81 02/09/25 18:18 Respiratory Rate 14 02/09/25 18:18 Blood Pressure 153/58 H 02/09/25 18:18 Pulse Oximetry 99 02/09/25 18:18 Oxygen Delivery Room Air 02/09/25 18:18 Temperature 98.0 F 02/09/25 18:18 Pulse Rate 77 02/09/25 21:06 Respiratory Rate 15 02/09/25 21:06 Blood Pressure 106/52 L 02/09/25 21:06 Pulse Oximetry 99 02/09/25 21:06 Oxygen Delivery Room Air 02/09/25 18:18 Medical Decision Making [facility] Narrative Medical decision making narrative: 81-year-old male presents emergency department for evaluation after having a fall. Patient had negative imaging of CT head CT cervical spine x-rays these an x-ray of the hip. Patient had no complaint on re-evaluation. Patient was discharged back to his care facility. Differential Diagnosis Differential Diagnosis: Subdural hematoma, subarachnoid hemorrhage, cervical spine fracture, knee contusion, knee fracture, pelvic fracture, hip fracture Vital Signs Vital Signs: Vital Signs Temperature 98.0 F 02/09/25 18:18 Pulse Rate 81 02/09/25 18:18 Respiratory Rate 14 02/09/25 18:18 Blood Pressure 153/58 H 02/09/25 18:18 Pulse Oximetry 99 02/09/25 18:18 Oxygen Delivery Room Air 02/09/25 18:18 Temperature 98.0 F 02/09/25 18:18 Pulse Rate 77 02/09/25 21:06 Respiratory Rate 15 02/09/25 21:06 Blood Pressure 106/52 L 02/09/25 21:06 Pulse Oximetry 99 02/09/25 21:06 Oxygen Delivery Room Air 02/09/25 18:18 Imaging Data Radiologist's impression: Impressions Head CT 02/09/25 19:47 IMPRESSION: No acute intracranial process. Hip/Pelvis X-Ray 02/09/25 20:02 IMPRESSION: No acute osseous finding in the pelvis or bilateral hips. Knee X-Ray 02/09/25 20:04 IMPRESSION: No acute osseous finding in the left knee. Cervical Spine CT 02/09/25 20:15 IMPRESSION: No acute fracture or traumatic malalignment in the cervical spine. 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 These lesions appear grossly stable since 2022. Patchy groundglass opacities in the lungs may represent edema or mosaic attenuation. 2.8 cm ovoid subcutaneous mass in the left posterior neck soft tissues. There has been slow interval growth since 2022. Discharge Plan Discharge Clinical Impression: Acute pain of left hip, Acute pain of left knee Patient Disposition: NH Long Term/Asst Living Condition: Stable Instructions: Antibiotic Form Additional Instructions: Have close follow-up with your primary care physician Patient Language: Welsh Prescriptions: No Action cephalexin 250 mg capsule 250 mg PO DAILY diphenhydramine-acetaminophen [Acetaminophen PM] 25-500 mg tablet 1 tablet PO HS PRN (Reason: sleep) loratadine [Allergy Relief (loratadine)] 10 mg tablet 10 mg PO DAILY aspirin 325 mg tablet 325 mg PO DAILY tamsulosin [Flomax] 0.4 mg capsule 0.4 mg PO DAILY finasteride [Proscar] 5 mg tablet 5 mg PO DAILY carvedilol [Coreg] 12.5 mg tablet 12.5 mg PO BID Rx Instructions: must administer with a meal/food atorvastatin [Lipitor] 40 mg tablet 40 mg PO DAILY ondansetron HCl 4 mg tablet 4 mg PO Q6H PRN (Reason: nausea and vomiting) Triple Antibiotic 3.5-400-5,000 [id number] Ointment In Packet 1 applic topical Q12HR 7 Days Qty: 1 0RF Rx Instructions: Neosporin ointment to affected area BID x7 days Follow-up/Referrals: UNKNOWN,DOCTOR [Primary Care Provider] -
--- OUTSIDE RECORDS SUMMARY | 2025-02-09 19:09 | XMS_ITS | Clinical Summary ---
Author Organization [facility] Address [address] [place] [id number] Care Team Providers Care Grease Packer Name Role Phone Unavailable Primary Care Provider [...] patient's age to complete this topic Insurance [facility]
--- OUTSIDE RECORDS SUMMARY | 2025-02-09 19:09 | XMS_ITS | Clinical Summary ---
Author Organization [facility] Address [address] [place] [address] Phone Care Team Providers Care Pallet Rectifier Name Role Phone Devin Dickey MD Primary Care Provider [phone] Allergies No known active allergies Medications ibuprofen [...] 69 06/19/2023 8:30 AM CDT Temperature 36.8 C (98.2 F) 06/19/2023 8:30 AM CDT Respiratory Rate - - Oxygen Saturation 96% [...] to complete this topic Zoster Immunization Discontinued Procedures Procedure Name Priority Date/Time Associated Diagnosis Comments COMPLETE BLOOD COUNT (CBC) WITH DIFF 12/15/2024 12:00 AM IMPLEMENTATION PROJECT MANAGER LIPASE 12/15/2024 12:00 AM IMPLEMENTATION PROJECT MANAGER CMP (COMPREHENSIVE METABOLIC PANEL) 12/15/2024 12:00 AM IMPLEMENTATION PROJECT MANAGER from Last 3 Months Results * LIPASE (12/15/2024 12:00 AM IMPLEMENTATION PROJECT MANAGER) 12/15/2024 us Provider Scan CHEMISTRY ORDERABLES Final Resul t SCAN * CMP (COMPREHENSIVE METABOLIC PANEL) (12/15/2024 12:00 AM IMPLEMENTATION PROJECT MANAGER) 12/15/2024 us Provider Scan CHEMISTRY ORDERABLES Final Resul t SCAN * COMPLETE BLOOD COUNT (CBC) WITH DIFF (12/15/2024 12:00 AM IMPLEMENTATION PROJECT MANAGER) 12/15/2024 us Provider Scan HEMATOLOGY ORDERABLES Final Resu lt SCAN from Last 3 Months Insurance [facility] MEDICARE Care Teams Pallet Rectifier Relationship Specialty Start Date End Date Devin Dickey MD [address] [place] [id number] PCP - General Internal Medicine 06/19/23
--- OUTSIDE RECORDS SUMMARY | 2025-02-09 19:09 | XMS_ITS ---
Author Name BettyAly langfordjanna Green Address [address] [place] [address] Phone [phone] Organization [employer] [employer] Address [address] [place] [address] Phone [phone] Care Team Providers Care Client Reporting Associate Name Role Phone Kwasi Fonseca Unavailable Jorge Tripathi Unavailable Functional Status No Results Mental Status No Results Allergies and Intolerances Name Onset Date Reaction Severity No Known Allergies (Allergy) SatMar 14 16:51:00 EDT 2022 Encounters Program Name Primary Diagnosis Admission Date/Time Dis charge Date/Time Assisted Living Area Unspecified dementi a, unspecified severity, without behavioral disturbance, psychotic disturbance, mood disturbance, and anxiety SatJul 26 12:52:00 EDT 2022 Immunizations Name Dates Status SatAug 27 01:00:00 EDT 2023 Vac cine safety concerns Medications Medication Directions Start Date End Date divalproex 125 mg capsule,delayed release sprinkle 125mg CAPSULE, DELAYED RELEASE SPRINKLE Oral 3 Times Daily Indication: mood stabilizer SatFeb 08 17:35:00 EDT 2024 nystatin 100,000 unit/gram topical powder 100,000 unit/gram POWDER (GRAM) Topical PRN 2 Times Daily Indication: Fungal dermatitis. Cleanse groin and scrotum with soap and water. Pat dry. Apply Nystop powder twice daily PRN. Indication: Cleanse groin and scrotum with soap and water. Pat dry. Apply Nystop powder twice daily PRN. Indication: SatDec 24 15:04:00 EST 2024 Triple Antibiotic 3.5 mg-400 unit-5,000 unit topical ointment packet 1 bere OINTMENT IN PACKET (EA) Topical 2 Times Daily for 7 Days Indication: apply to affected area SatDec 19 19:00:00 EST 2024Dec 26 18:59:00 EST 2024 ondansetron 4 mg disintegrating tablet 4mg TABLET,DISINTEGRATING Oral PRN Every 6 Hours Indication: nausea/vomiting SatDec 15 17:00:00 EST 2024 cephALEXin 250 mg tablet 250 mg TABLET O ral 1 Time Daily Indication: UTI Prophylactic SatAug 27 01:00:00 EDT 2023 cephALEXin 250 mg tablet 250 mg TABLET O ral 1 Time Daily Indication: UTI Prophylactic SatAug 26 01:00:00 EDT 2023Aug 15 17:30:00 EDT 2023 sulfamethoxazole 800 mg-trimethoprim 160 mg tablet 1 tab TABLET Oral 2 Times Daily for 10 Days Indication: UTI Sun Aug 16 01:00:00 EDT 2023Aug 26 00:59:00 EDT 2023 Ear Drops (carbamide peroxide) 6.5 % 5 drops DROPS Both Ears 2 Times Daily for 4 Days Indication: excess cerumen SatMarch 22 08:00:00 EDT 2023March 26 07:59:00 EDT 2023 LORazepam 0.5 mg tablet 0.5mg By Mouth P RN 2 Times Daily Indication: agitation SatAug 26 11:00:00 EDT 2023Dec 10 14:16:00 EST 2024 LORazepam 0.5 mg tablet 1 tablet TABLET Oral PRN Every 12 Hours Indication: agitation SatMar 13 13:00:00 EDT 2023Jul 09 14:52:00 EDT 2023 carvediloL 12.5 mg tablet 1 tablet TABLE T Oral 2 Times Daily Indication: HTN Take with mealsHold if SYS is <100mmHg Diastolic <60 or HR <55 bpm, Notify provider. Indication: SatFeb 12 12:18:00 EDT 2023 nystatin 100,000 unit/gram topical powder 100,000 unit/gram POWDER (GRAM) Topical PRN 2 Times Daily Indication: Cleanse groin and scrotum with soap and water. Pat dry. Apply Nystop powder twice daily PRN. Indication: SatJan 28 11:30:00 EDT 2023Dec 24 15:05:00 EST 2024 loratadine 10 mg tablet 10mg TABLET Oral 1 Time Daily Indication: allergies SatDec 02 19:44:00 EST 2023 acetaminophen PM 25 mg-500 mg tablet 25-500 mg TABLET Oral 1 Time Daily Indication: pain/discomfort/sleep aid SatDec 03 18:00:00 EST 2023 cephALEXin 500 mg capsule 500 mg CAPSULE Oral 3 Times Daily for 7 Days Indication: UTI SatDec 01 18:00:00 EST 2023 Sun Dec 08 17:59:00 EST 2023 cephALEXin 250 mg tablet 250 mg TABLET O ral 1 Time Daily Indication: UTI Prophylactic SatDec 09 08:00:00 EST 2023 [facility] Aug 15 17:24:00 EDT 2023 finasteride 5 mg tablet 1 tablet TABLET Oral 1 Time Daily Indication: BPHProtective guidelines- single or double glove while handling medicationFollow Safety precautions/restrictions on crushing medication. SatOct 15 16:00:00 EST 2022 nitrofurantoin monohydrate/macrocrystals 100 mg capsule 1 cap CAPSULE Oral Every 6 Hours for 7 Days Indication: cystitis nurse admin 1 cap q6h x 7 days SatSep 27 01:00:00 EST 2022Oct 04 00:59:00 EST 2022 Acidophilus capsule 1 cap CAPSULE Oral 1 Time Daily for 14 Days Indication: prophylaxis nurse admin 1 cap QD x 14 days SatSep 27 01:00:00 EST 2022Oct 11 00:59:00 EST 2022 nystatin 100,000 unit/gram topical powder 100,000 unit/gram POWDER (GRAM) Topical 2 Times Daily Indication: Cleanse groin and scrotum with soap and water. Pat dry. Apply Nystop powder twice daily and PRN. Indication: SatSep 04 16:30:00 EDT 2022Jan 28 11:31:00 EDT 2023 carvediloL 12.5 mg tablet 1 tablet TABLE T Oral 2 Times Daily Indication: HTN Take with meals Indication: Sat Sep 07:00:00 EDT 2022 [facility] Sep 18:47:00 EDT 2022 carvediloL 12.5 mg tablet 1 tablet TABLE T Oral 2 Times Daily Indication: HTN Take with mealsHold if SYS is <100mmHg Diastolic <60 or HR <55 bpm, Notify provider. Indication: Sat Sep 18:46:00 EDT 2022u Feb 12 12:19:00 EDT 2023 miconazole nitrate 2 % topical cream 1 application CREAM (GRAM) Topical PRN 2 Times Daily Indication: Apply BID to affected area (Tip of penis) r/t fungal rash Sat Sep 18:47:00 EDT 2022 TUBErsoL 5 tub. unit/0.1 mL intradermal injection solution 0.1ml VIAL (ML) Intradermal 1 Time Daily for 1 Day Indication: 1st injection on admission, then 1 week after. Read between 48 and 72 hours.. Sun Jul 28 07:00:00 EDT 2022 [facility] Jul 29 06:59:00 EDT 2022 TUBErsoL 5 tub. unit/0.1 mL intradermal injection solution Read VIAL (ML) Intradermal 1 Time Daily for 1 Day Indication: Read results SatJul 31 07:00:00 EDT 2022 Viky Aug 01 06:59:00 EDT 2022 aspirin 325 mg tablet 1 tablet TABLET Or al 1 Time Daily Indication: DVT Prophylactic Sat Sep 06:00:00 EDT 2022 carvediloL 12.5 mg tablet 1 tablet TABLE T Oral 2 Times Daily Indication: HTN Take with meals Indication: Sat Sep 18:00:00 EDT 2022 Sat Sep 07:37:00 EDT 2022 cephALEXin 250 mg tablet 1 tablet TABLET Oral 1 Time Daily Indication: UTI Prophylactic Sat Sep 06:00:00 EDT 2022 Sun Dec 01 13:32:00 EST 2023 finasteride 5 mg tablet 1 tablet TABLET Oral 1 Time Daily Indication: BPH Sat Sep 06:00:00 EDT 2022 Tue Oct 15 16:03:00 EST 2022 miconazole nitrate 2 % topical cream 1 application CREAM (GRAM) Topical 2 Times Daily Indication: Apply BID to affected area (Tip of penis) r/t fungal rash SatJul 26 18:00:00 EDT 2022 Sat Sep 18:47:00 EDT 2022 tamsulosin 0.4 mg capsule 1 capsule CAPS ULE Oral 1 Time Daily Indication: Urinary Retention Sat Sep 06:00:00 EDT 2022 melatonin 10 mg tablet 1 tab TABLET Oral 1 Time Daily Indication: Insomnia SatJul 26 18:00:00 EDT 2022Dec 02 19:50:00 EST 2023 Banophen 25 mg capsule 1 cap CAPSULE Ora l PRN Hour Of Sleep Indication: Insomnia SatJul 26 06:00:00 EDT 2022 Banophen 25 mg capsule 1 cap CAPSULE Ora l 1 Time Daily Indication: Insomnia SatJul 26 18:00:00 EDT 2022Dec 02 19:50:00 EST 2023 atorvastatin 40 mg tablet 1 tablet TABLE T Oral 1 Time Daily Indication: hyperlipidemia SatJul 26 18:00:00 EDT 2022 atorvastatin 40 mg tablet 1 tablet TABLE T Oral 1 Time Daily Indication: hyperlipidemia SatJul 08 07:00:00 EDT 2022Jul 26 01:00:00 EDT 2022 melatonin 10 mg tablet 1 tab TABLET Oral 1 Time Daily Indication: sleep SatJul 04 17:39:00 EDT 2022Jul 26 01:00:00 EDT 2022 Banophen 25 mg capsule 1 cap CAPSULE Ora l PRN Hour Of Sleep Indication: sleep SatJul 04 17:40:00 EDT 2022Jul 26 01:00:00 EDT 2022 Banophen 25 mg capsule 1 cap CAPSULE Ora l 1 Time Daily Indication: sleep SatJul 04 17:44:00 EDT 2022Jul 26 01:00:00 EDT 2022 linezolid 600 mg tablet 1 tab TABLET Ora l 2 Times Daily for 14 Days Indication: VRE SatJul 04 23:00:00 EDT 2022Jul 05 16:20:00 EDT 2022 TUBErsoL 5 tub. unit/0.1 mL intradermal injection solution 0.1 ml VIAL (ML) Intradermal 1 Time Weekly for 2 Weeks Indication: Tb test 1st injection on admission, then one week after. Read between 48 and 72 hours SatJun 28 09:00:00 EDT 2022Jul 12 08:59:00 EDT 2022 TUBErsoL 5 tub. unit/0.1 mL intradermal injection solution Read Results VIAL (ML) Other 1 Time Weekly for 2 Weeks Indication: TB Test Read results between 48-72 hours after 1st and 2nd (1 week apart). If positive do chest x-ray. SatJun 28 09:00:00 EDT 2022Jul 12 08:59:00 EDT 2022 aspirin 325 mg tablet 1 tablet TABLET Or al 1 Time Daily Indication: DVT proph SatJun 27 13:00:00 ED2022Jul 26 01:00:00 ED2022 carvediloL 12.5 mg tablet 1 tablet TABLE T Oral 2 Times Daily Indication: HTNTake with meals SatJun 27 14:00:00 ED2022Jul 26 01:00:00 ED2022 cephALEXin 250 mg tablet 1 tablet TABLET Oral 1 Time Daily Indication: UTI SatJun 27 14:00:00 ED2022Jul 26 01:00:00 ED2022 finasteride 5 mg tablet 1 tablet TABLET Oral 1 Time Daily Indication: BPH SatJun 27 14:00:00 ED2022Jul 26 01:00:00 ED2022 miconazole nitrate 2 % topical cream 1 application CREAM (GRAM) Topical 2 Times Daily Indication: Apply BID to affected area r/t fungal rash SatJun 27 14:00:00 2022Jul 26 01:00:00 ED2022 rosuvastatin 10 mg tablet 1 tablet TABLE T Oral 1 Time Daily Indication: HLD SatJun 27 14:00:00 ED2022 Sun Jul 07 12:10:00 EDT 2022 tamsulosin 0.4 mg capsule 1 capsule CAPS ULE Oral 1 Time Daily Indication: Urinary Retention SatJun 27 14:00:00 ED2022Jul 26 01:00:00 ED2022 cephALEXin 500 mg capsule 500 mg CAPSULE Oral 2 Times Daily for 11 Days Indication: UTI SatMay 07 23:30:00 ED2022May 13 01:00:00 ED2022 ibuprofen 200 mg tablet 200 mg TABLET Or al PRN Every 6 Hours Indication: Pain SatMay 08 00:00:00 EDT 2022May 13 01:00:00 EDT 2022 Antifungal (miconazole) 2 % topical cream one application CREAM (GRAM) Topical 2 Times Daily Indication: Fungal rash SatMay 08 00:00:00 ED2022May 13 01:00:00 EDT 2022 phenazopyridine 100 mg tablet 100 mg TABLET Oral PRN 3 Times Daily Indication: Urinary pain SatMay 08 00:00:00 ED2022May 13 01:00:00 EDT 2022 tamsulosin 0.4 mg capsule 0.4 mg CAPSULE Oral 1 Time Daily Indication: urinary retention SatMay 08 00:00:00 EDT 2022May 13 01:00:00 EDT 2022 cefdinir 300 mg capsule 1 CAPSULE Oral 2 Times Daily for 10 Days Indication: UTI SatMay 04 07:52:00 EDT 2022 TuMay 07 23:53:00 EDT 2022 Azo Urinary Pain Relief 99.5 mg tablet 2 tablets TABLET Oral 3 Times Daily for 2 Days Indication: Urinary Pain Give with meals x 2 days; take with meals & full glass of water SatMay 03 16:00:00 EDT 2022May 05 15:59:00 EDT 2022 cefdinir 300 mg capsule 300 mg CAPSULE O ral 2 Times Daily for 4 Days Indication: UTI SatApr 24 03:30:00 EDT 2022Apr 28 03:29:00 EDT 2022 fluconazole 200 mg tablet 1 tablet TABLE T Oral 1 Time Daily for 1 Day Indication: UTI, replacement dose SatApr 21 13:00:00 EDT 2022Apr 22 12:59:00 EDT 2022 cefdinir 300 mg capsule 1 capsule CAPSUL E Oral 2 Times Daily for 8 Days Indication: UTI SatApr 20 14:00:00 EDT 2022Apr 20 17:41:00 EDT 2022 fluconazole 200 mg tablet 1 tablet TABLE T Oral 1 Time Daily for 11 Days Indication: UTI SatApr 20 14:00:00 EDT 2022Apr 20 17:41:00 EDT 2022 cefdinir 300 mg capsule 1 capsule CAPSUL E Oral 2 Times Daily for 8 Days Indication: UTI SatApr 20 17:41:00 EDT 2022Apr 24 03:47:00 EDT 2022 fluconazole 200 mg tablet 1 tablet TABLE T Oral 1 Time Daily for 11 Days Indication: UTI SatApr 20 17:41:00 EDT 2022May 01 17:40:00 EDT 2022 Glucosamine Chondroitin 550 mg-30 mg-1 mg capsule 1 capsule CAPSULE Oral 2 Times Daily Indication: Joint health SatApril 05 08:00:00 EDT 2022Apr 20 14:34:00 EDT 2022 levoFLOXacin 750 mg tablet 1 tablet TABL ET Oral 1 Time Daily for 3 Days Indication: uti SatApril 01 07:00:00 EDT 2022April 04 06:59:00 EDT 2022 sulfamethoxazole 800 mg-trimethoprim 160 mg tablet 1 tablet TABLET Oral 2 Times Daily for 10 Days Indication: Leukocytosis SatMarch 28 07:00:00 EDT 2022March 31 20:00:00 EDT 2022 TUBErsoL 5 tub. unit/0.1 mL intradermal injection solution 0.1 ml VIAL (ML) Intradermal 1 Time Weekly for 2 Weeks Indication: TB 1st injection on admission, then one week after. Read between 48 and 72 hours Viky Mar 14 16:00:00 EDT 2022u Mar 14 16:55:00 EDT 2022 TUBErsoL 5 tub. unit/0.1 mL intradermal injection solution Read Results VIAL (ML) Other 1 Time Weekly for 2 Weeks Indication: TB Read results between 48-72 hours after 1st and 2nd (1 week apart). If positive do chest x-ray. Viky Mar 14 16:00:00 EDT 2022Mar 14 16:55:00 EDT 2022 TUBErsoL 5 tub. unit/0.1 mL intradermal injection solution 0.1 ml VIAL (ML) Intradermal 1 Time Weekly for 2 Weeks Indication: admit 1st injection on admission, then one week after. Read between 48 and 72 hours [facility] Mar 14 07:00:00 EDT 2022March 28 06:59:00 EDT 2022 TUBErsoL 5 tub. unit/0.1 mL intradermal injection solution Read Results VIAL (ML) Other 1 Time Weekly for 2 Weeks Indication: admit Read results between 48-72 hours after 1st and 2nd (1 week apart). If positive do chest x-ray. [facility] Mar 16 07:00:00 EDT 2022March 30 06:59:00 EDT 2022 cefdinir 300 mg capsule 1 capsule CAPSUL E Oral 2 Times Daily for 10 Days Indication: uti Viky Mar 14 09:00:00 EDT 2022March 24 08:59:00 EDT 2022 Problems Active Concerns * Atrioventricular block, complete* Code: * Start Date: SatMar 13 00:00:00 EDT 2022 * End Date: * Text: * Laceration without foreign body of left forearm, subsequent encounter* Code: * Start Date: SatMar 13 00:00:00 EDT 2022 * End Date: * Text: * Unspecified hearing loss, bilateral* Code: * Start Date: SatMar 13 00:00:00 EDT 2022 * End Date: * Text: * Unspecified dementia, unspecified severity, without behavioral disturbance, psychotic disturbance, mood disturbance, and anxiety* Code: * Start Date: SatMar 13 00:00:00 EDT 2022 * End Date: * Text: * Personal history of transient ischemic attack (TIA), and cerebral infarction without residual deficits* Code: * Start Date: SatMar 13 00:00:00 EDT 2022 * End Date: * Text: * Primary osteoarthritis, right shoulder* Code: * Start Date: SatMar 13 00:00:00 EDT 2022 * End Date: * Text: * Personal history of nicotine dependence* Code: * Start Date: SatMar 13 00:00:00 EDT 2022 * End Date: * Text: * Presence of cardiac pacemaker* Code: * Start Date: SatMar 13 00:00:00 EDT 2022 * End Date: * Text: * Moderate protein-calorie malnutrition* Code: * Start Date: SatMarch 31 00:00:00 EDT 2022 * End Date: * Text: * Personal history of urinary (tract) infections* Code: * Start Date: SatMay 07 00:00:00 EDT 2022 * End Date: * Text: * Phimosis* Code: * Start Date: SatMay 07 00:00:00 EDT 2022 * End Date: * Text: * Unspecified urinary incontinence* Code: * Start Date: SatMay 07 00:00:00 EDT 2022 * End Date: * Text: * Retention of urine, unspecified* Code: * Start Date: SatMay 07 00:00:00 EDT 2022 * End Date: * Text: * Hemiplegia and hemiparesis following cerebral infarction affecting right dominant side* Code: * Start Date: SatJun 27 00:00:00 EDT 2022 * End Date: * Text: * Somnolence* Code: * Start Date: SatJun 27 00:00:00 EDT 2022 * End Date: * Text: * Benign prostatic hyperplasia without lower urinary tract symptoms* Code: * Start Date: SatJun 27 00:00:00 EDT 2022 * End Date: * Text: * Personal history of pneumonia (recurrent)* Code: * Start Date: SatMarch 31 00:00:00 EDT 2022 * End Date: * Text: * Unspecified systolic (congestive) heart failure* Code: * Start Date: SatJun 27 00:00:00 EDT 2022 * End Date: * Text: * group home (current) use of antibiotics* Code: * Start Date: SatJun 27 00:00:00 EDT 2022 * End Date: * Text: * 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* Code: * Start Date: SatJun 27 00:00:00 EDT 2022 * End Date: * Text: * Sick sinus syndrome* Code: * Start Date: SatJun 27 00:00:00 EDT 2022 * End Date: * Text: * 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 (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) use of anticoagulants* Code: * Start Date: SatJun 27 00:00:00 EDT 2022 * End Date: * Text: * Insomnia due to other mental disorder* Code: * Start Date: SatJul 04 00:00:00 EDT 2022 * End Date: * Text: * Repeated falls* Code: * Start Date: SatNov 20 00:00:00 EST 2023 * End Date: * Text: * Hyperlipidemia, unspecified* Code: * Start Date: SatJul 26 00:00:00 EDT 2022 * End Date: * Text: * 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* Code: * Start Date: SatDec 15 00:00:00 EST 2024 * End Date: * Text: * Dehydration* Code: * Start Date: SatDec 15 00:00:00 EST 2024 * End Date: * Text: * Altered mental status, unspecified* Code: * Start Date: SatDec 15 00:00:00 EST 2024 * End Date: * Text: * Atelectasis* Code: * Start Date: SatDec 15 00:00:00 EST 2024 * End Date: * Text: Resolved Concerns * Problem Unspecified fall, subsequent encounter* Code: * Start Date: SatJun 27 00:00:00 EDT 2022 * End Date: SatSep 04 00:00:00 EDT 2023 * Problem Urinary tract infection, site not specified* Code: * Start Date: SatSep 26 00:00:00 EST 2022 * End Date: SatSep 04 00:00:00 EDT 2023 * Problem Contusion of lip, subsequent encounter* Code: * Start Date: SatNov 23 00:00:00 EST 2023 * End Date: SatSep 04 00:00:00 EDT 2023 * Problem Unspecified injury of head, subsequent encounter* Code: * Start Date: SatNov 23 00:00:00 EST 2023 * End Date: SatSep 04 00:00:00 EDT 2023 Vital Signs Vital Sign Measurement Date Systolic Blood Pressure 125.00 mm[Hg] SatFeb 09 19:10:00 EDT 2024 Diastolic Blood Pressure 54.00 mm[Hg] SatFeb 09 19:10:00 EDT 2024 Heart Rate 65.00 /min SatFeb 09 19:10 :00 EDT 2024 Body temperature 98.00 [degF] SatFeb 09 19:1 0:00 EDT 2024 Respiratory rate 18.00 /min SatFeb 09 19:1 0:00 EDT 2024 Pulse Oximetry 97.00 % SatFeb 09 19:10 :00 EDT 2024 Systolic Blood Pressure 108.00 mm[Hg] SatFeb 08 20:47:00 EDT 2024 Diastolic Blood Pressure 74.00 mm[Hg] SatFeb 08 20:47:00 EDT 2024 Heart Rate 62.00 /min SatFeb 08 20:47 :00 EDT 2024 Body temperature 97.80 [degF] SatFeb 08 20:4 7:00 EDT 2024 Respiratory rate 18.00 /min SatFeb 08 20:4 7:00 EDT 2024 Systolic Blood Pressure 142.00 mm[Hg] SatFeb 05 18:35:39 EDT 2024 Diastolic Blood Pressure 70.00 mm[Hg] SatFeb 05 18:35:39 EDT 2024 Systolic Blood Pressure 101.00 mm[Hg] SatFeb 05 10:56:28 EDT 2024 Diastolic Blood Pressure 53.00 mm[Hg] SatFeb 05 10:56:28 EDT 2024 Systolic Blood Pressure 112.00 mm[Hg] SatFeb 01 18:59:00 EDT 2024 Diastolic Blood Pressure 49.00 mm[Hg] SatFeb 01 18:59:00 EDT 2024 Heart Rate 55.00 /min SatFeb 01 18:59 :00 EDT 2024 Body weight 169.90 [lb_av] SatFeb 01 18:59 :00 EDT 2024 Body temperature 98.40 [degF] SatFeb 01 18:5 9:00 EDT 2024 Respiratory rate 18.00 /min SatFeb 01 18:5 9:00 EDT 2024 Pulse Oximetry 96.00 % SatFeb 01 18:59 :00 EDT 2024 Systolic Blood Pressure 117.00 mm[Hg] Sat 15 09:29:57 EDT 2024 Diastolic Blood Pressure 56.00 mm[Hg] Sat 15 09:29:57 EDT 2024 Heart Rate 56.00 /min Sat 15 09:29 :57 EDT 2024 Systolic Blood Pressure 133.00 mm[Hg] Sat 14 17:43:48 EDT 2024 Diastolic Blood Pressure 61.00 mm[Hg] Sat 14 17:43:48 EDT 2024 Systolic Blood Pressure 103.00 mm[Hg] SatJan 29 10:46:01 EDT 2024 Diastolic Blood Pressure 58.00 mm[Hg] SatJan 29 10:46:01 EDT 2024 Heart Rate 59.00 /min SatJan 29 10:46 :01 EDT 2024 Systolic Blood Pressure 128.00 mm[Hg] SatJan 22 18:29:38 EST 2024 Diastolic Blood Pressure 70.00 mm[Hg] SatJan 22 18:29:38 EST 2024 Heart Rate 66.00 /min SatJan 22 18:29 :38 EST 2024 Systolic Blood Pressure 104.00 mm[Hg] SatJan 22 10:02:26 EST 2024 Diastolic Blood Pressure 56.00 mm[Hg] SatJan 22 10:02:26 EST 2024 Heart Rate 61.00 /min SatJan 22 10:02 :26 EST 2024 Systolic Blood Pressure 132.00 mm[Hg] SatJan 17 13:50:57 EST 2024 Diastolic Blood Pressure 70.00 mm[Hg] SatJan 17 13:50:57 EST 2024 Body weight 170.30 [lb_av] SatJan 17 13:50 :57 EST 2024 Heart Rate 63.00 /min SatJan 17 13:50 :57 EST 2024 Body temperature 97.30 [degF] SatJan 17 13:5 0:57 EST 2024 Respiratory rate 18.00 /min SatJan 17 13:5 0:57 EST 2024 Systolic Blood Pressure 156.00 mm[Hg] SatJan 15 19:12:51 EST 2024 Diastolic Blood Pressure 71.00 mm[Hg] SatJan 15 19:12:51 EST 2024 Heart Rate 68.00 /min SatJan 15 19:12 :51 EST 2024 Systolic Blood Pressure 105.00 mm[Hg] Sat Feb 10:00:59 EST 2024 Diastolic Blood Pressure 54.00 mm[Hg] Sat Feb 10:00:59 EST 2024 Systolic Blood Pressure 131.00 mm[Hg] Sat Feb 06:28:00 EST 2024 Diastolic Blood Pressure 64.00 mm[Hg] Sat Feb 06:28:00 EST 2024 Heart Rate 61.00 /min Sat Feb 06:28 :00 EST 2024 Body temperature 96.90 [degF] Sat Feb 06:2 8:00 EST 2024 Respiratory rate 18.00 /min Sat Feb 06:2 8:00 EST 2024 Pulse Oximetry 99.00 % Sat Feb 06:28 :00 EST 2024 Systolic Blood Pressure 137.00 mm[Hg] Sat Feb 20:03:16 EST 2024 Diastolic Blood Pressure 70.00 mm[Hg] Sat Feb 20:03:16 EST 2024 Heart Rate 77.00 /min Sat Feb 20:03 :16 EST 2024 Systolic Blood Pressure 112.00 mm[Hg] Sat Feb 09:59:37 EST 2024 Diastolic Blood Pressure 51.00 mm[Hg] Sat Feb 21 09:59:37 EST 2024 Heart Rate 59.00 /min Fri Feb 21 09:59 :37 EST 2024 Systolic Blood Pressure 122.00 mm[Hg] Sat Feb 15 20:54:24 EST 2024 Diastolic Blood Pressure 59.00 mm[Hg] Sat Feb 15 20:54:24 EST 2024 Heart Rate 70.00 /min Sat Feb 15 20:54 :24 EST 2024 Body temperature 98.20 [degF] Sat Feb 15 20:5 4:24 EST 2024 Respiratory rate 16.00 /min Sat Feb 15 20:5 4:24 EST 2024 Systolic Blood Pressure 134.00 mm[Hg] Fri Feb 14 19:14:05 EST 2024 Diastolic Blood Pressure 66.00 mm[Hg] Fri Feb 14 19:14:05 EST 2024 Heart Rate 72.00 /min Fri Feb 14 19:14 :05 EST 2024 Systolic Blood Pressure 110.00 mm[Hg] Fri Feb 14 10:30:33 EST 2024 Diastolic Blood Pressure 58.00 mm[Hg] Sat 14 10:30:33 EST 2024 Heart Rate 60.00 /min SatJan 01 10:30 :33 EST 2024 Systolic Blood Pressure 116.00 mm[Hg] Satb 10 16:30:00 EST 2024 Diastolic Blood Pressure 55.00 mm[Hg] Satb 10 16:30:00 EST 2024 Heart Rate 60.00 /min Satb 16:30 :00 EST 2024 Body temperature 98.40 [degF] Satb 16:3 0:00 EST 2024 Respiratory rate 20.00 /min Satb 16:3 0:00 EST 2024 Pulse Oximetry 99.00 % SatDec 28 16:30 :00 EST 2024 Systolic Blood Pressure 141.00 mm[Hg] SatDec 25 19:35:33 EST 2024 Diastolic Blood Pressure 86.00 mm[Hg] SatDec 25 19:35:33 EST 2024 Heart Rate 78.00 /min SatDec 25 19:35 :33 EST 2024 Systolic Blood Pressure 149.00 mm[Hg] SatDec 21 22:39:00 EST 2024 Diastolic Blood Pressure 96.00 mm[Hg] SatDec 21 22:39:00 EST 2024 Heart Rate 92.00 /min SatDec 21 22:39 :00 EST 2024 Body temperature 97.70 [degF] SatDec 21 22:3 9:00 EST 2024 Respiratory rate 16.00 /min SatDec 21 22:3 9:00 EST 2024 Pulse Oximetry 96.00 % SatDec 21 22:39 :00 EST 2024 Systolic Blood Pressure 91.00 mm[Hg] Sun b 11:53:14 EST 2024 Diastolic Blood Pressure 51.00 mm[Hg] Sun b 11:53:14 EST 2024 Body weight 170.50 [lb_av] Sun b 11:53 :14 EST 2024 Heart Rate 66.00 /min Sun b 11:53 :14 EST 2024 Body temperature 97.20 [degF] Sun b 11:5 3:14 EST 2024 Respiratory rate 16.00 /min Sun b 11:5 3:14 EST 2024 Systolic Blood Pressure 155.00 mm[Hg] [facility] Feb 01:00:00 EST 2024 Diastolic Blood Pressure 82.00 mm[Hg] Sat b 01:00:00 EST 2024 Heart Rate 60.00 /min SatDec 19 01:00 :00 EST 2024 Respiratory rate 16.00 /min SatDec 19 01:0 0:00 EST 2024 Pulse Oximetry 98.00 % SatDec 19 01:00 :00 EST 2024 Systolic Blood Pressure 131.00 mm[Hg] SatDec 14 18:45:00 EST 2024 Diastolic Blood Pressure 72.00 mm[Hg] SatDec 14 18:45:00 EST 2024 Heart Rate 78.00 /min SatDec 14 18:45 :00 EST 2024 Body temperature 97.90 [degF] SatDec 14 18:4 5:00 EST 2024 Respiratory rate 16.00 /min SatDec 14 18:4 5:00 EST 2024 Systolic Blood Pressure 104.00 mm[Hg] SatDec 11 10:06:13 EST 2024 Diastolic Blood Pressure 56.00 mm[Hg] SatDec 11 10:06:13 EST 2024 Heart Rate 58.00 /min SatDec 11 10:06 :13 EST 2024 Systolic Blood Pressure 149.00 mm[Hg] SatDec 09 21:30:00 EST 2024 Diastolic Blood Pressure 85.00 mm[Hg] SatDec 09 21:30:00 EST 2024 Heart Rate 73.00 /min SatDec 09 21:30 :00 EST 2024 Body temperature 97.80 [degF] SatDec 09 21:3 0:00 EST 2024 Respiratory rate 18.00 /min SatDec 09 21:3 0:00 EST 2024 Pulse Oximetry 99.00 % SatDec 09 21:30 :00 EST 2024 Systolic Blood Pressure 131.00 mm[Hg] SatDec 09 14:15:00 EST 2024 Diastolic Blood Pressure 58.00 mm[Hg] SatDec 09 14:15:00 EST 2024 Heart Rate 58.00 /min SatDec 09 14:15 :00 EST 2024 Body temperature 97.10 [degF] SatDec 09 14:1 5:00 EST 2024 Respiratory rate 18.00 /min SatDec 09 14:1 5:00 EST 2024 Pulse Oximetry 100.00 % SatDec 09 14:15 :00 EST 2024 Systolic Blood Pressure 132.00 mm[Hg] SatDec 04 18:53:20 EST 2024 Diastolic Blood Pressure 64.00 mm[Hg] SatDec 04 18:53:20 EST 2024 Heart Rate 66.00 /min SatDec 04 18:53 :20 EST 2024 Systolic Blood Pressure 104.00 mm[Hg] SatDec 04 10:03:22 EST 2024 Diastolic Blood Pressure 63.00 mm[Hg] SatDec 04 10:03:22 EST 2024 Heart Rate 60.00 /min SatDec 04 10:03 :22 EST 2024 Systolic Blood Pressure 142.00 mm[Hg] SatDec 03 20:22:00 EST 2024 Diastolic Blood Pressure 74.00 mm[Hg] SatDec 03 20:22:00 EST 2024 Heart Rate 90.00 /min SatDec 03 20:22 :00 EST 2024 Body temperature 97.80 [degF] SatDec 03 20:2 2:00 EST 2024 Respiratory rate 20.00 /min SatDec 03 20:2 2:00 EST 2024 Pulse Oximetry 97.00 % SatDec 03 20:22 :00 EST 2024 Body weight 176.10 [lb_av] SatDec 02 17:44 :38 EST 2024 Heart Rate 72.00 /min SatDec 02 17:44 :38 EST 2024 Body temperature 97.50 [degF] SatDec 02 17:4 4:38 EST 2024 Respiratory rate 18.00 /min SatDec 02 17:4 4:38 EST 2024 Systolic Blood Pressure 158.00 mm[Hg] SatNov 27 18:32:18 EST 2024 Diastolic Blood Pressure 73.00 mm[Hg] SatNov 27 18:32:18 EST 2024 Heart Rate 69.00 /min SatNov 27 18:32 :18 EST 2024 Systolic Blood Pressure 151.00 mm[Hg] SatNov 23 20:10:00 EST 2024 Diastolic Blood Pressure 66.00 mm[Hg] SatNov 23 20:10:00 EST 2024 Heart Rate 75.00 /min SatNov 23 20:10 :00 EST 2024 Body temperature 97.10 [degF] SatNov 23 20:1 0:00 EST 2024 Respiratory rate 18.00 /min SatNov 23 20:1 0:00 EST 2024 Pulse Oximetry 97.00 % SatNov 23 20:10 :00 EST 2024 Systolic Blood Pressure 139.00 mm[Hg] SatNov 20 18:25:18 EST 2024 Diastolic Blood Pressure 62.00 mm[Hg] SatNov 20 18:25:18 EST 2024 Heart Rate 70.00 /min SatNov 20 18:25 :18 EST 2024 Systolic Blood Pressure 125.00 mm[Hg] SatNov 19 15:04:29 EST 2024 Diastolic Blood Pressure 55.00 mm[Hg] SatNov 19 15:04:29 EST 2024 Body weight 173.90 [lb_av] SatNov 19 15:04 :29 EST 2024 Heart Rate 61.00 /min SatNov 19 15:04 :29 EST 2024 Body temperature 98.00 [degF] SatNov 19 15:0 4:29 EST 2024 Respiratory rate 18.00 /min SatNov 19 15:0 4:29 EST 2024 Systolic Blood Pressure 122.00 mm[Hg] SatNov 13 19:34:45 EST 2023 Diastolic Blood Pressure 70.00 mm[Hg] SatNov 13 19:34:45 EST 2023 Heart Rate 69.00 /min SatNov 13 19:34 :45 EST 2023 Systolic Blood Pressure 134.00 mm[Hg] SatNov 07 11:48:31 EST 2023 Diastolic Blood Pressure 62.00 mm[Hg] SatNov 07 11:48:31 EST 2023 Heart Rate 72.00 /min SatNov 07 11:48 :31 EST 2023 Body weight 175.70 [lb_av] SatNov 07 11:48 :31 EST 2023 Body temperature 98.20 [degF] SatNov 07 11:4 8:31 2023 Respiratory rate 18.00 /min SatNov 07 11:4 8:31 EST 2023 Pulse Oximetry 98.00 % SatNov 07 11:48 :31 EST 2023 Systolic Blood Pressure 124.00 mm[Hg] SatNov 06 19:49:13 EST 2023 Diastolic Blood Pressure 65.00 mm[Hg] SatNov 06 19:49:13 EST 2023 Heart Rate 80.00 /min SatNov 06 19:49 :13 EST 2023 Systolic Blood Pressure 154.00 mm[Hg] SatNov 05 21:01:00 EST 2023 Diastolic Blood Pressure 84.00 mm[Hg] SatNov 05 21:01:00 EST 2023 Heart Rate 69.00 /min SatNov 05 21:01 :00 EST 2023 Body temperature 97.70 [degF] SatNov 05 21:0 1:00 EST 2023 Respiratory rate 18.00 /min Viky Nov 05 21:0 1:00 EST 2023 Systolic Blood Pressure 125.00 mm[Hg] [facility] Oct 31 20:33:00 EST 2023 Diastolic Blood Pressure 64.00 mm[Hg] [facility] Oct 31 20:33:00 EST 2023 Heart Rate 80.00 /min [facility] Oct 31 20:33 :00 EST 2023 Body temperature 98.60 [degF] [facility] Oct 31 20:3 3:00 EST 2023 Respiratory rate 18.00 /min [facility] Oct 31 20:3 3:00 EST 2023 Pulse Oximetry 95.00 % [facility] Oct 31 20:33 :00 EST 2023 Systolic Blood Pressure 135.00 mm[Hg] SatOct 30 18:44:32 EST 2023 Diastolic Blood Pressure 80.00 mm[Hg] SatOct 30 18:44:32 EST 2023 Heart Rate 95.00 /min SatOct 30 18:44 :32 EST 2023 Systolic Blood Pressure 133.00 mm[Hg] SatOct 21 19:48:00 EST 2023 Diastolic Blood Pressure 70.00 mm[Hg] SatOct 21 19:48:00 EST 2023 Heart Rate 69.00 /min SatOct 21 19:48 :00 EST 2023 Body temperature 97.70 [degF] SatOct 21 19:4 8:00 EST 2023 Respiratory rate 18.00 /min SatOct 21 19:4 8:00 EST 2023 Pulse Oximetry 100.00 % SatOct 21 19:48 :00 EST 2023 Systolic Blood Pressure 150.00 mm[Hg] SatOct 18 16:05:44 EST 2023 Diastolic Blood Pressure 64.00 mm[Hg] SatOct 18 16:05:44 EST 2023 Body weight 176.50 [lb_av] SatOct 18 16:05 :44 EST 2023 Heart Rate 65.00 /min SatOct 18 16:05 :44 EST 2023 Body temperature 97.30 [degF] SatOct 18 16:0 5:44 EST 2023 Respiratory rate 20.00 /min SatOct 18 16:0 5:44 EST 2023 Systolic Blood Pressure 131.00 mm[Hg] SatOct 16 19:21:35 EST 2023 Diastolic Blood Pressure 59.00 mm[Hg] SatOct 16 19:21:35 EST 2023 Systolic Blood Pressure 115.00 mm[Hg] SatOct 16 10:09:50 EST 2023 Diastolic Blood Pressure 61.00 mm[Hg] SatOct 16 10:09:50 EST 2023 Heart Rate 62.00 /min SatOct 16 10:09 :50 EST 2023 Body Height 70.00 [in_i] SatOct 13 19:32 :29 EST 2023 Systolic Blood Pressure 124.00 mm[Hg] SatOct 09 17:53:57 EST 2023 Diastolic Blood Pressure 66.00 mm[Hg] SatOct 09 17:53:57 EST 2023 Heart Rate 64.00 /min SatOct 09 17:53 :57 EST 2023 Systolic Blood Pressure 128.00 mm[Hg] SatOct 09 14:18:08 EST 2023 Diastolic Blood Pressure 76.00 mm[Hg] SatOct 09 14:18:08 EST 2023 Heart Rate 88.00 /min SatOct 09 14:18 :08 EST 2023 Systolic Blood Pressure 153.00 mm[Hg] SatOct 07 18:57:00 EST 2023 Diastolic Blood Pressure 82.00 mm[Hg] SatOct 07 18:57:00 EST 2023 Heart Rate 69.00 /min SatOct 07 18:57 :00 EST 2023 Body temperature 97.70 [degF] SatOct 07 18:5 7:00 EST 2023 Respiratory rate 18.00 /min SatOct 07 18:5 7:00 EST 2023 Systolic Blood Pressure 137.00 mm[Hg] SatOct 02 20:35:52 EST 2023 Diastolic Blood Pressure 69.00 mm[Hg] SatOct 02 20:35:52 EST 2023 Heart Rate 62.00 /min SatOct 02 20:35 :52 EST 2023 Body temperature 97.90 [degF] SatOct 02 20:3 5:52 EST 2023 Respiratory rate 20.00 /min SatOct 02 20:3 5:52 EST 2023 Systolic Blood Pressure 165.00 mm[Hg] SatOct 02 19:38:34 EST 2023 Diastolic Blood Pressure 79.00 mm[Hg] SatOct 02 19:38:34 EST 2023 Heart Rate 86.00 /min SatOct 02 19:38 :34 EST 2023 Systolic Blood Pressure 119.00 mm[Hg] SatOct 02 12:31:02 EST 2023 Diastolic Blood Pressure 64.00 mm[Hg] SatOct 02 12:31:02 EST 2023 Heart Rate 60.00 /min SatOct 02 12:31 :02 EST 2023 Systolic Blood Pressure 122.00 mm[Hg] SatSep 20 15:39:27 EST 2023 Diastolic Blood Pressure 50.00 mm[Hg] SatSep 20 15:39:27 EST 2023 Heart Rate 63.00 /min SatSep 20 15:39 :27 EST 2023 Body weight 174.50 [lb_av] SatSep 20 15:39 :27 EST 2023 Body temperature 98.50 [degF] SatSep 20 15:3 9:27 EST 2023 Respiratory rate 20.00 /min SatSep 20 15:3 9:27 EST 2023 Pulse Oximetry 96.00 % SatSep 20 15:39 :27 EST 2023 Systolic Blood Pressure 154.00 mm[Hg] SatSep 16 14:58:00 EDT 2023 Diastolic Blood Pressure 66.00 mm[Hg] SatSep 16 14:58:00 EDT 2023 Heart Rate 60.00 /min SatSep 16 14:58 :00 EDT 2023 Body temperature 98.20 [degF] SatSep 16 14:5 8:00 EDT 2023 Respiratory rate 20.00 /min SatSep 16 14:5 8:00 EDT 4 Systolic Blood Pressure 146.00 mm[Hg] SatSep 11 15:43:00 EDT 2023 Diastolic Blood Pressure 86.00 mm[Hg] SatSep 11 15:43:00 EDT 2023 Heart Rate 66.00 /min SatSep 11 15:43 :00 EDT 2023 Body temperature 97.80 [degF] SatSep 11 15:4 3:00 EDT 2023 Respiratory rate 20.00 /min SatSep 11 15:4 3:00 EDT 2023 Systolic Blood Pressure 139.00 mm[Hg] SatSep 09 15:59:00 EDT 2023 Diastolic Blood Pressure 66.00 mm[Hg] SatSep 09 15:59:00 EDT 2023 Heart Rate 65.00 /min SatSep 09 15:59 :00 EDT 2023 Body temperature 98.00 [degF] SatSep 09 15:5 9:00 EDT 2023 Respiratory rate 18.00 /min SatSep 09 15:5 9:00 EDT 2023 Pulse Oximetry 97.00 % SatSep 09 15:59 :00 EDT 2023 Systolic Blood Pressure 137.00 mm[Hg] Wed Oct 23 10:01:00 EDT 4 Diastolic Blood Pressure 76.00 mm[Hg] Sat Oct 23 10:01:00 EDT 4 Heart Rate 72.00 /min Sat Oct 23 10:01 :00 EDT 2023 Body temperature 97.30 [degF] Sat Oct 23 10:0 1:00 EDT 2023 Respiratory rate 18.00 /min Sat Oct 23 10:0 1:00 EDT 2023 Pulse Oximetry 98.00 % Sat Oct 23 10:01 :00 EDT 2023 Systolic Blood Pressure 161.00 mm[Hg] Sat Oct 18 21:42:00 EDT 2023 Diastolic Blood Pressure 71.00 mm[Hg] Sat Oct 18 21:42:00 EDT 2023 Heart Rate 66.00 /min Sat Oct 18 21:42 :00 EDT 2023 Body temperature 97.70 [degF] Sat Oct 18 21:4 2:00 EDT 2023 Respiratory rate 18.00 /min Sat Oct 18 21:4 2:00 EDT 2023 Pulse Oximetry 97.00 % Sat Oct 18 21:42 :00 EDT 2023 Systolic Blood Pressure 135.00 mm[Hg] Sat Oct 16 19:56:00 EDT 4 Diastolic Blood Pressure 73.00 mm[Hg] Sat Oct 16 19:56:00 EDT 4 Heart Rate 86.00 /min Sat Oct 16 19:56 :00 EDT 2023 Respiratory rate 18.00 /min Sat Oct 16 19:5 6:00 EDT 2023 Body temperature 97.60 [degF] [facility] Oct 16 19:5 6:00 EDT 2023 Systolic Blood Pressure 132.00 mm[Hg] Sat Oct 15 16:14:17 EDT 2023 Diastolic Blood Pressure 65.00 mm[Hg] Sat Oct 15 16:14:17 EDT 2023 Body weight 172.90 [lb_av] Sat 15 16:14 :17 EDT 2023 Heart Rate 56.00 /min Sat Oct 15 16:14 :17 EDT 2023 Body temperature 98.20 [degF] Sat 15 16:1 4:17 EDT 2023 Respiratory rate 18.00 /min Sat Oct 15 16:1 4:17 EDT 2023 Systolic Blood Pressure 113.00 mm[Hg] Sat Oct 11 18:38:04 EDT 2023 Diastolic Blood Pressure 67.00 mm[Hg] SatAug 28 18:38:04 EDT 2023 Heart Rate 69.00 /min SatAug 28 18:38 :04 EDT 2023 Systolic Blood Pressure 109.00 mm[Hg] SatAug 28 09:36:39 EDT 2023 Diastolic Blood Pressure 53.00 mm[Hg] SatAug 28 09:36:39 EDT 2023 Heart Rate 60.00 /min SatAug 28 09:36 :39 EDT 2023 Systolic Blood Pressure 130.00 mm[Hg] Sat 08 23:27:00 EDT 2023 Diastolic Blood Pressure 71.00 mm[Hg] Sat 08 23:27:00 EDT 2023 Heart Rate 79.00 /min Sat 08 23:27 :00 EDT 2023 Body temperature 97.90 [degF] Sat 08 23:2 7:00 EDT 2023 Respiratory rate 18.00 /min Sat 08 23:2 7:00 EDT 2023 Pulse Oximetry 98.00 % SatAug 25 23:27 :00 EDT 2023 Systolic Blood Pressure 134.00 mm[Hg] Sat 08 20:30:00 EDT 2023 Diastolic Blood Pressure 46.00 mm[Hg] Sat 08 20:30:00 EDT 2023 Heart Rate 58.00 /min Sat 08 20:30 :00 EDT 2023 Body temperature 97.40 [degF] Sat 08 20:3 0:00 EDT 2023 Respiratory rate 16.00 /min Sat 08 20:3 0:00 EDT 2023 Pulse Oximetry 99.00 % SatAug 25 20:30 :00 EDT 2023 Systolic Blood Pressure 112.00 mm[Hg] SatAug 21 19:01:53 EDT 2023 Diastolic Blood Pressure 58.00 mm[Hg] SatAug 21 19:01:53 EDT 2023 Heart Rate 68.00 /min SatAug 21 19:01 :53 EDT 2023 Systolic Blood Pressure 112.00 mm[Hg] SatAug 18 21:37:56 EDT 2023 Diastolic Blood Pressure 56.00 mm[Hg] SatAug 18 21:37:56 EDT 2023 Body weight 175.90 [lb_av] SatAug 18 21:37 :56 EDT 2023 Heart Rate 57.00 /min SatAug 18 21:37 :56 EDT 4 Body temperature 96.50 [degF] SatAug 18 21:3 7:56 EDT 4 Respiratory rate 20.00 /min SatAug 18 21:3 7:56 EDT 2023 Systolic Blood Pressure 155.00 mm[Hg] Fri Sep 27 19:45:51 EDT 2023 Diastolic Blood Pressure 70.00 mm[Hg] Fri Sep 27 19:45:51 EDT 2023 Heart Rate 70.00 /min Fri Sep 27 19:45 :51 EDT 2023 Systolic Blood Pressure 149.00 mm[Hg] Fri Sep 27 08:10:00 EDT 2023 Diastolic Blood Pressure 68.00 mm[Hg] Fri Sep 27 08:10:00 EDT 2023 Heart Rate 57.00 /min Fri Sep 27 08:10 :00 EDT 2023 Body temperature 97.50 [degF] Fri Sep 27 08:1 0:00 EDT 2023 Respiratory rate 18.00 /min Fri Sep 27 08:1 0:00 EDT 2023 Systolic Blood Pressure 167.00 mm[Hg] [facility] Sep 26 19:20:00 EDT 2023 Diastolic Blood Pressure 96.00 mm[Hg] [facility] Sep 26 19:20:00 EDT 4 Heart Rate 68.00 /min [facility] Sep 26 19:20 :00 EDT 4 Body temperature 98.80 [degF] [facility] Sep 26 19:2 0:00 EDT 2023 Respiratory rate 18.00 /min [facility] Sep 26 19:2 0:00 EDT 2023 Pulse Oximetry 97.00 % [facility] Sep 26 19:20 :00 EDT 2023 Systolic Blood Pressure 152.00 mm[Hg] [facility] Sep 23 20:10:00 EDT 2023 Diastolic Blood Pressure 80.00 mm[Hg] [facility] Sep 23 20:10:00 EDT 4 Heart Rate 64.00 /min [facility] Sep 23 20:10 :00 EDT 2023 Body temperature 98.30 [degF] [facility] Sep 23 20:1 0:00 EDT 2023 Respiratory rate 20.00 /min [facility] Sep 23 20:1 0:00 EDT 2023 Systolic Blood Pressure 98.00 mm[Hg] Fri Sep 20 10:05:08 EDT 2023 Diastolic Blood Pressure 56.00 mm[Hg] Fri Sep 20 10:05:08 EDT 2023 Heart Rate 62.00 /min Fri Sep 20 10:05 :08 EDT 2023 Systolic Blood Pressure 143.00 mm[Hg] [facility] Sep 19 20:05:00 EDT 2023 Diastolic Blood Pressure 78.00 mm[Hg] [facility] Sep 19 20:05:00 EDT 2023 Heart Rate 77.00 /min [facility] Sep 19 20:05 :00 EDT 2023 Body temperature 98.40 [degF] [facility] Sep 19 20:0 5:00 EDT 2023 Respiratory rate 20.00 /min [facility] Sep 19 20:0 5:00 EDT 2023 Systolic Blood Pressure 132.00 mm[Hg] Mon Sep 16 19:58:00 EDT 2023 Diastolic Blood Pressure 63.00 mm[Hg] [facility] Sep 16 19:58:00 EDT 2023 Heart Rate 58.00 /min [facility] Sep 16 19:58 :00 EDT 2023 Body weight 180.10 [lb_av] Mon Sep 16 19:58 :00 EDT 2023 Body temperature 97.80 [degF] [facility] Sep 16 19:5 8:00 EDT 2023 Respiratory rate 20.00 /min Mon Sep 16 19:5 8:00 EDT 2023 Pulse Oximetry 99.00 % Mon Sep 16 19:58 :00 EDT 4 Systolic Blood Pressure 132.00 mm[Hg] Mon Sep 16 06:04:24 EDT 2023 Diastolic Blood Pressure 56.00 mm[Hg] Mon Sep 16 06:04:24 EDT 2023 Heart Rate 53.00 /min Mon Sep 16 06:04 :24 EDT 2023 Body temperature 97.50 [degF] Mon Sep 16 06:0 4:24 EDT 2023 Pulse Oximetry 96.00 % Mon Sep 16 06:04 :24 EDT 2023 Systolic Blood Pressure 170.00 mm[Hg] Sun Sep 15 18:56:00 EDT 2023 Diastolic Blood Pressure 79.00 mm[Hg] Sun Sep 15 18:56:00 EDT 2023 Heart Rate 60.00 /min Sun Sep 15 18:56 :00 EDT 2023 Pulse Oximetry 99.00 % Sun Sep 15 18:56 :00 EDT 2023 Body temperature 97.70 [degF] Sun Sep 15 18:5 6:00 EDT 2023 Respiratory rate 20.00 /min Sun Sep 15 18:5 6:00 EDT 2023 Systolic Blood Pressure 158.00 mm[Hg] SatJul 31 18:31:44 EDT 2023 Diastolic Blood Pressure 65.00 mm[Hg] SatJul 31 18:31:44 EDT 2023 Heart Rate 64.00 /min SatJul 31 18:31 :44 EDT 2023 Systolic Blood Pressure 161.00 mm[Hg] SatJul 24 18:31:26 EDT 2023 Diastolic Blood Pressure 75.00 mm[Hg] Sat Sep 18:31:26 EDT 2023 Heart Rate 60.00 /min SatJul 24 18:31 :26 EDT 2023 Systolic Blood Pressure 98.00 mm[Hg] Sat Sep 09:49:05 EDT 2023 Diastolic Blood Pressure 59.00 mm[Hg] Sat Sep 09:49:05 EDT 2023 Heart Rate 60.00 /min SatJul 24 09:49 :05 EDT 2023 Systolic Blood Pressure 137.00 mm[Hg] [facility] 16:02:32 EDT 2023 Diastolic Blood Pressure 64.00 mm[Hg] [facility] 16:02:32 EDT 2023 Body weight 179.60 [lb_av] [facility] 16:02 :32 EDT 2023 Heart Rate 51.00 /min [facility] 16:02 :32 EDT 2023 Body temperature 97.20 [degF] [facility] 16:0 2:32 EDT 2023 Respiratory rate 16.00 /min [facility] 16:0 2:32 EDT 2023 Systolic Blood Pressure 101.00 mm[Hg] SatJul 17 13:17:15 EDT 2023 Diastolic Blood Pressure 62.00 mm[Hg] SatJul 17 13:17:15 EDT 2023 Heart Rate 62.00 /min SatJul 17 13:17 :15 EDT 2023 Systolic Blood Pressure 149.00 mm[Hg] SatJul 16 05:45:00 EDT 2023 Diastolic Blood Pressure 78.00 mm[Hg] SatJul 16 05:45:00 EDT 2023 Heart Rate 65.00 /min SatJul 16 05:45 :00 EDT 2023 Body temperature 96.60 [degF] SatJul 16 05:4 5:00 EDT 2023 Respiratory rate 20.00 /min SatJul 16 05:4 5:00 EDT 2023 Pulse Oximetry 95.00 % SatJul 16 05:45 :00 EDT 2023 Systolic Blood Pressure 118.00 mm[Hg] SatJul 10 19:54:02 EDT 2023 Diastolic Blood Pressure 62.00 mm[Hg] SatJul 10 19:54:02 EDT 2023 Heart Rate 72.00 /min SatJul 10 19:54 :02 EDT 2023 Systolic Blood Pressure 157.00 mm[Hg] SatJul 08 06:01:00 EDT 2023 Diastolic Blood Pressure 68.00 mm[Hg] SatJul 08 06:01:00 EDT 2023 Heart Rate 57.00 /min SatJul 08 06:01 :00 EDT 2023 Body temperature 97.10 [degF] SatJul 08 06:0 1:00 EDT 2023 Respiratory rate 18.00 /min SatJul 08 06:0 1:00 EDT 2023 Pulse Oximetry 97.00 % SatJul 08 06:01 :00 EDT 2023 Systolic Blood Pressure 163.00 mm[Hg] SatJul 06 22:13:00 EDT 2023 Diastolic Blood Pressure 100.00 mm[Hg] SatJul 06 22:13:00 EDT 2023 Heart Rate 76.00 /min SatJul 06 22:13 :00 EDT 2023 Body temperature 97.50 [degF] SatJul 06 22:1 3:00 EDT 2023 Respiratory rate 18.00 /min SatJul 06 22:1 3:00 EDT 2023 Pulse Oximetry 98.00 % SatJul 06 22:13 :00 EDT 2023 Body weight 176.50 [lb_av] SatJul 06 11:05 :09 EDT 2023 Systolic Blood Pressure 169.00 mm[Hg] SatJul 03 19:24:45 EDT 2023 Diastolic Blood Pressure 67.00 mm[Hg] SatJul 03 19:24:45 EDT 2023 Heart Rate 73.00 /min SatJul 03 19:24 :45 EDT 2023 Systolic Blood Pressure 101.00 mm[Hg] SatJul 03 05:34:43 EDT 2023 Diastolic Blood Pressure 55.00 mm[Hg] SatJul 03 05:34:43 EDT 2023 Body weight 132.00 [lb_av] SatJul 03 05:34 :43 EDT 2023 Heart Rate 59.00 /min SatJul 03 05:34 :43 EDT 2023 Body temperature 97.50 [degF] SatJul 03 05:3 4:43 EDT 2023 Respiratory rate 18.00 /min SatJul 03 05:3 4:43 EDT 2023 Systolic Blood Pressure 139.00 mm[Hg] [facility] Jun 27 21:15:00 EDT 2023 Diastolic Blood Pressure 71.00 mm[Hg] [facility] Jun 27 21:15:00 EDT 2023 Heart Rate 80.00 /min [facility] Jun 27 21:15 :00 EDT 2023 Body temperature 97.80 [degF] [facility] Jun 27 21:1 5:00 EDT 2023 Respiratory rate 18.00 /min [facility] Jun 27 21:1 5:00 EDT 2023 Pulse Oximetry 98.00 % [facility] Jun 27 21:15 :00 EDT 2023 Systolic Blood Pressure 111.00 mm[Hg] SatJun 26 18:48:34 EDT 2023 Diastolic Blood Pressure 55.00 mm[Hg] SatJun 26 18:48:34 EDT 2023 Heart Rate 60.00 /min SatJun 26 18:48 :34 EDT 2023 Systolic Blood Pressure 146.00 mm[Hg] SatJun 26 10:02:03 EDT 2023 Diastolic Blood Pressure 68.00 mm[Hg] SatJun 26 10:02:03 EDT 2023 Heart Rate 62.00 /min SatJun 26 10:02 :03 EDT 2023 Systolic Blood Pressure 143.00 mm[Hg] [facility] Jun 25 18:42:22 EDT 2023 Diastolic Blood Pressure 55.00 mm[Hg] [facility] Jun 25 18:42:22 EDT 2023 Heart Rate 61.00 /min [facility] Jun 25 18:42 :22 EDT 2023 Systolic Blood Pressure 131.00 mm[Hg] SatJun 19 20:35:02 EDT 2023 Diastolic Blood Pressure 64.00 mm[Hg] SatJun 19 20:35:02 EDT 2023 Heart Rate 65.00 /min SatJun 19 20:35 :02 EDT 2023 Body temperature 97.80 [degF] SatJun 19 20:3 5:02 EDT 2023 Respiratory rate 20.00 /min SatJun 19 20:3 5:02 EDT 2023 Pulse Oximetry 96.00 % SatJun 19 20:35 :02 EDT 2023 Systolic Blood Pressure 120.00 mm[Hg] SatJun 19 11:23:38 EDT 2024 Diastolic Blood Pressure 60.00 mm[Hg] SatJun 19 11:23:38 EDT 2023 Heart Rate 68.00 /min SatJun 19 11:23 :38 EDT 2023 Systolic Blood Pressure 157.00 mm[Hg] SatJun 18 20:42:00 EDT 2023 Diastolic Blood Pressure 69.00 mm[Hg] SatJun 18 20:42:00 EDT 2023 Heart Rate 64.00 /min SatJun 18 20:42 :00 EDT 2023 Body temperature 98.00 [degF] SatJun 18 20:4 2:00 EDT 2023 Respiratory rate 18.00 /min SatJun 18 20:4 2:00 EDT 2023 Pulse Oximetry 98.00 % SatJun 18 20:42 :00 EDT 2023 Systolic Blood Pressure 147.00 mm[Hg] SatJun 12 20:14:46 EDT 2023 Diastolic Blood Pressure 84.00 mm[Hg] SatJun 12 20:14:46 EDT 2023 Heart Rate 79.00 /min SatJun 12 20:14 :46 EDT 2023 Systolic Blood Pressure 97.00 mm[Hg] SatJun 05 12:32:03 EDT 2023 Diastolic Blood Pressure 58.00 mm[Hg] SatJun 05 12:32:03 EDT 2023 Heart Rate 60.00 /min SatJun 05 12:32 :03 EDT 2023 Systolic Blood Pressure 124.00 mm[Hg] SatJun 02 14:55:53 EDT 2023 Diastolic Blood Pressure 55.00 mm[Hg] SatJun 02 14:55:53 EDT 2023 Body weight 174.10 [lb_av] SatJun 02 14:55 :53 EDT 2023 Heart Rate 59.00 /min SatJun 02 14:55 :53 EDT 2023 Body temperature 97.00 [degF] SatJun 02 14:5 5:53 EDT 2023 Respiratory rate 18.00 /min SatJun 02 14:5 5:53 EDT 2023 Systolic Blood Pressure 120.00 mm[Hg] SatJun 01 13:19:57 EDT 2023 Diastolic Blood Pressure 56.00 mm[Hg] SatJun 01 13:19:57 EDT 2023 Heart Rate 58.00 /min SatJun 01 13:19 :57 EDT 2023 Body temperature 98.10 [degF] SatJun 01 13:1 9:57 EDT 4 Respiratory rate 16.00 /min SatJun 01 13:1 9:57 EDT 2023 Systolic Blood Pressure 102.00 mm[Hg] Sun May 31 18:56:53 EDT 2023 Diastolic Blood Pressure 65.00 mm[Hg] SatMay 31 18:56:53 EDT 2023 Heart Rate 60.00 /min SatMay 31 18:56 :53 EDT 2023 Body temperature 98.60 [degF] Sun May 31 18:5 6:53 EDT 2023 Respiratory rate 18.00 /min SatMay 31 18:5 6:53 EDT 2023 Systolic Blood Pressure 108.00 mm[Hg] SatMay 31 16:06:58 EDT 2023 Diastolic Blood Pressure 46.00 mm[Hg] SatMay 31 16:06:58 EDT 2023 Systolic Blood Pressure 119.00 mm[Hg] SatMay 31 16:06:58 EDT 2023 Diastolic Blood Pressure 59.00 mm[Hg] [place] May 31 16:06:58 EDT 2023 Heart Rate 55.00 /min SatMay 31 16:06 :58 EDT 2023 Heart Rate 60.00 /min SatMay 31 16:06 :58 EDT 2023 Body temperature 99.20 [degF] [place] May 31 16:0 6:58 EDT 2023 Body temperature 97.80 [degF] SatMay 31 16:0 6:58 EDT 2023 Respiratory rate 16.00 /min SatMay 31 16:0 6:58 EDT 2023 Respiratory rate 18.00 /min [place] May 31 16:0 6:58 EDT 2023 Systolic Blood Pressure 117.00 mm[Hg] [facility] May 30 14:20:27 EDT 2023 Diastolic Blood Pressure 49.00 mm[Hg] [facility] May 30 14:20:27 EDT 2023 Heart Rate 68.00 /min [facility] May 30 14:20 :27 EDT 2023 Body temperature 100.70 [degF] [facility] May 30 14:2 0:27 EDT 2023 Respiratory rate 20.00 /min [facility] May 30 14:2 0:27 EDT 2023 Systolic Blood Pressure 138.00 mm[Hg] SatMay 29 19:21:49 EDT 2023 Diastolic Blood Pressure 74.00 mm[Hg] SatMay 29 19:21:49 EDT 2023 Systolic Blood Pressure 140.00 mm[Hg] SatMay 29 19:21:49 EDT 2023 Diastolic Blood Pressure 72.00 mm[Hg] SatMay 29 19:21:49 EDT 2023 Heart Rate 70.00 /min SatMay 29 19:21 :49 EDT 2023 Heart Rate 74.00 /min SatMay 29 19:21 :49 EDT 2023 Body temperature 98.10 [degF] SatMay 29 19:2 1:49 EDT 2023 Body temperature 98.30 [degF] SatMay 29 19:2 1:49 EDT 2023 Respiratory rate 16.00 /min SatMay 29 19:2 1:49 EDT 2023 Respiratory rate 18.00 /min SatMay 29 19:2 1:49 EDT 2023 Systolic Blood Pressure 136.00 mm[Hg] SatMay 24 15:59:00 EDT 2023 Diastolic Blood Pressure 66.00 mm[Hg] SatMay 24 15:59:00 EDT 2023 Heart Rate 73.00 /min SatMay 24 15:59 :00 EDT 2023 Body temperature 99.00 [degF] SatMay 24 15:5 9:00 EDT 2023 Respiratory rate 20.00 /min SatMay 24 15:5 9:00 EDT 2023 Pulse Oximetry 99.00 % SatMay 24 15:59 :00 EDT 2023 Systolic Blood Pressure 161.00 mm[Hg] SatMay 22 18:52:24 EDT 2023 Diastolic Blood Pressure 68.00 mm[Hg] SatMay 22 18:52:24 EDT 2023 Heart Rate 64.00 /min SatMay 22 18:52 :24 EDT 2023 Systolic Blood Pressure 120.00 mm[Hg] SatMay 22 09:19:03 EDT 2023 Diastolic Blood Pressure 53.00 mm[Hg] SatMay 22 09:19:03 EDT 2023 Heart Rate 61.00 /min SatMay 22 09:19 :03 EDT 2023 Systolic Blood Pressure 148.00 mm[Hg] SatMay 18 19:05:19 EDT 2023 Diastolic Blood Pressure 70.00 mm[Hg] SatMay 18 19:05:19 EDT 2023 Body weight 179.70 [lb_av] SatMay 18 19:05 :19 EDT 2023 Heart Rate 55.00 /min SatMay 18 19:05 :19 EDT 2024 Body temperature 97.70 [degF] SatMay 18 19:0 5:19 EDT 2023 Respiratory rate 18.00 /min SatMay 18 19:0 5:19 EDT 2023 Systolic Blood Pressure 126.00 mm[Hg] SatMay 15 18:19:17 EDT 2023 Diastolic Blood Pressure 79.00 mm[Hg] SatMay 15 18:19:17 EDT 2023 Heart Rate 61.00 /min SatMay 15 18:19 :17 EDT 2023 Systolic Blood Pressure 99.00 mm[Hg] SatMay 15 10:17:22 EDT 2023 Diastolic Blood Pressure 57.00 mm[Hg] SatMay 15 10:17:22 EDT 2023 Heart Rate 61.00 /min SatMay 15 10:17 :22 EDT 2023 Systolic Blood Pressure 132.00 mm[Hg] SatMay 12 10:57:00 EDT 2023 Diastolic Blood Pressure 68.00 mm[Hg] SatMay 12 10:57:00 EDT 2023 Heart Rate 62.00 /min May 12 10:57 :00 EDT 2023 Body temperature 97.50 [degF] SatMay 12 10:5 7:00 EDT 2023 Respiratory rate 18.00 /min May 12 10:5 7:00 EDT 2023 Pulse Oximetry 97.00 % May 12 10:57 :00 EDT 2023 Systolic Blood Pressure 125.00 mm[Hg] [facility] May 02 16:03:06 EDT 2023 Diastolic Blood Pressure 55.00 mm[Hg] [facility] Mandeep 15 16:03:06 EDT 2023 Body weight 181.10 [lb_av] [facility] 15 16:03 :06 EDT 2023 Heart Rate 58.00 /min [facility] 15 16:03 :06 EDT 2023 Body temperature 97.80 [degF] [facility] 15 16:0 3:06 EDT 2023 Respiratory rate 18.00 /min [facility] 15 16:0 3:06 EDT 2023 Systolic Blood Pressure 123.00 mm[Hg] SatMay 01 19:47:48 EDT 2023 Diastolic Blood Pressure 62.00 mm[Hg] SatMay 01 19:47:48 EDT 2023 Heart Rate 64.00 /min SatMay 01 19:47 :48 EDT 2023 Systolic Blood Pressure 99.00 mm[Hg] SatMay 01 09:10:03 EDT 2023 Diastolic Blood Pressure 56.00 mm[Hg] SatMay 01 09:10:03 EDT 2023 Heart Rate 67.00 /min SatMay 01 09:10 :03 EDT 2023 Systolic Blood Pressure 134.00 mm[Hg] SatApr 24 18:47:29 EDT 2023 Diastolic Blood Pressure 63.00 mm[Hg] SatApr 24 18:47:29 EDT 2023 Heart Rate 62.00 /min SatApr 24 18:47 :29 EDT 2023 Systolic Blood Pressure 136.00 mm[Hg] SatApr 24 10:47:23 EDT 2023 Diastolic Blood Pressure 60.00 mm[Hg] SatApr 24 10:47:23 EDT 2023 Heart Rate 61.00 /min SatApr 24 10:47 :23 EDT 2023 Systolic Blood Pressure 138.00 mm[Hg] SatApr 18 19:18:52 EDT 2023 Diastolic Blood Pressure 67.00 mm[Hg] SatApr 18 19:18:52 EDT 2023 Body weight 177.30 [lb_av] [facility] Apr 18 19:18 :52 EDT 2023 Heart Rate 59.00 /min SatApr 18 19:18 :52 EDT 2023 Body temperature 97.70 [degF] SatApr 18 19:1 8:52 EDT 2023 Respiratory rate 18.00 /min SatApr 18 19:1 8:52 EDT 2023 Systolic Blood Pressure 108.00 mm[Hg] SatApril 17 20:05:17 EDT 2023 Diastolic Blood Pressure 63.00 mm[Hg] SatApril 17 20:05:17 EDT 2023 Heart Rate 77.00 /min SatApril 17 20:05 :17 EDT 2023 Systolic Blood Pressure 127.00 mm[Hg] SatApril 12 20:32:25 EDT 2023 Diastolic Blood Pressure 60.00 mm[Hg] SatApril 12 20:32:25 EDT 2023 Heart Rate 74.00 /min SatApril 12 20:32 :25 EDT 2023 Systolic Blood Pressure 97.00 mm[Hg] SatApril 12 09:46:39 EDT 2023 Diastolic Blood Pressure 59.00 mm[Hg] SatApril 12 09:46:39 EDT 2023 Heart Rate 59.00 /min SatApril 12 09:46 :39 EDT 2023 Systolic Blood Pressure 166.00 mm[Hg] SatApril 08 20:17:00 EDT 2023 Diastolic Blood Pressure 81.00 mm[Hg] SatApril 08 20:17:00 EDT 2023 Heart Rate 65.00 /min SatApril 08 20:17 :00 EDT 2023 Body temperature 98.40 [degF] SatApril 08 20:1 7:00 EDT 2023 Respiratory rate 20.00 /min SatApril 08 20:1 7:00 EDT 2023 Pulse Oximetry 98.00 % SatApril 08 20:17 :00 EDT 2023 Systolic Blood Pressure 112.00 mm[Hg] SatApril 03 20:21:06 EDT 2023 Diastolic Blood Pressure 75.00 mm[Hg] SatApril 03 20:21:06 EDT 2023 Heart Rate 66.00 /min SatApril 03 20:21 :06 EDT 2023 Systolic Blood Pressure 130.00 mm[Hg] SatApril 01 16:05:08 EDT 2023 Diastolic Blood Pressure 62.00 mm[Hg] SatApril 01 16:05:08 EDT 2023 Body weight 175.30 [lb_av] SatApril 01 16:05 :08 EDT 2023 Heart Rate 55.00 /min SatApril 01 16:05 :08 EDT 2023 Body temperature 97.60 [degF] SatApril 01 16:0 5:08 EDT 2023 Respiratory rate 16.00 /min SatApril 01 16:0 5:08 EDT 2023 Systolic Blood Pressure 147.00 mm[Hg] SatMarch 27 19:53:52 EDT 2023 Diastolic Blood Pressure 66.00 mm[Hg] SatMarch 27 19:53:52 EDT 2023 Heart Rate 59.00 /min SatMarch 27 19:53 :52 EDT 2023 Systolic Blood Pressure 107.00 mm[Hg] SatMarch 27 09:33:33 EDT 2023 Diastolic Blood Pressure 77.00 mm[Hg] SatMarch 27 09:33:33 EDT 2023 Heart Rate 74.00 /min SatMarch 27 09:33 :33 EDT 2023 Systolic Blood Pressure 104.00 mm[Hg] SatMarch 18 15:17:10 EDT 2023 Diastolic Blood Pressure 61.00 mm[Hg] SatMarch 18 15:17:10 EDT 2023 Body weight 175.90 [lb_av] SatMarch 18 15:17 :10 EDT 2023 Heart Rate 58.00 /min SatMarch 18 15:17 :10 EDT 2023 Body temperature 96.40 [degF] SatMarch 18 15:1 7:10 EDT 2023 Respiratory rate 18.00 /min SatMarch 18 15:1 7:10 EDT 2023 Systolic Blood Pressure 166.00 mm[Hg] Viky Mar 12 18:41:54 EDT 2023 Diastolic Blood Pressure 70.00 mm[Hg] Viky Mar 12 18:41:54 EDT 2023 Heart Rate 79.00 /min Viky Mar 12 18:41 :54 EDT 2023 Systolic Blood Pressure 127.00 mm[Hg] SatMar 06 19:33:47 EDT 2023 Diastolic Blood Pressure 64.00 mm[Hg] SatMar 06 19:33:47 EDT 2023 Heart Rate 65.00 /min SatMar 06 19:33 :47 EDT 2023 Systolic Blood Pressure 126.00 mm[Hg] SatMar 02 18:01:57 EDT 2023 Diastolic Blood Pressure 69.00 mm[Hg] SatMar 02 18:01:57 EDT 2023 Body weight 173.90 [lb_av] SatMar 02 18:01 :57 EDT 2023 Heart Rate 59.00 /min SatMar 02 18:01 :57 EDT 2023 Body temperature 97.30 [degF] SatMar 02 18:0 1:57 EDT 2023 Respiratory rate 18.00 /min SatMar 02 18:0 1:57 EDT 2023 Systolic Blood Pressure 152.00 mm[Hg] SatFeb 27 20:00:13 EDT 2023 Diastolic Blood Pressure 69.00 mm[Hg] SatFeb 27 20:00:13 EDT 2023 Heart Rate 64.00 /min SatFeb 27 20:00 :13 EDT 2023 Systolic Blood Pressure 112.00 mm[Hg] SatFeb 27 09:38:52 EDT 2023 Diastolic Blood Pressure 51.00 mm[Hg] SatFeb 27 09:38:52 EDT 2023 Heart Rate 60.00 /min SatFeb 27 09:38 :52 EDT 2023 Systolic Blood Pressure 158.00 mm[Hg] SatFeb 20 19:44:18 EDT 2023 Diastolic Blood Pressure 62.00 mm[Hg] SatFeb 20 19:44:18 EDT 2023 Heart Rate 64.00 /min SatFeb 20 19:44 :18 EDT 2023 Systolic Blood Pressure 167.00 mm[Hg] Viky Feb 19 20:31:00 EDT 2023 Diastolic Blood Pressure 81.00 mm[Hg] Viky Feb 19 20:31:00 EDT 2023 Heart Rate 66.00 /min SatFeb 19 20:31 :00 EDT 2023 Body temperature 98.50 [degF] [facility] Feb 19 20:3 1:00 EDT 2023 Respiratory rate 18.00 /min Viky Feb 19 20:3 1:00 EDT 2023 Pulse Oximetry 98.00 % Viky Feb 19 20:31 :00 EDT 2023 Systolic Blood Pressure 118.00 mm[Hg] SatFeb 16 18:39:43 EDT 2023 Diastolic Blood Pressure 61.00 mm[Hg] SatFeb 16 18:39:43 EDT 2023 Body weight 172.10 [lb_av] SatFeb 16 18:39 :43 EDT 2023 Heart Rate 64.00 /min SatFeb 16 18:39 :43 EDT 2023 Body temperature 97.00 [degF] SatFeb 16 18:3 9:43 EDT 2023 Respiratory rate 18.00 /min SatFeb 16 18:3 9:43 EDT 4 Systolic Blood Pressure 137.00 mm[Hg] SatFeb 13 18:43:36 EDT 2023 Diastolic Blood Pressure 65.00 mm[Hg] SatFeb 13 18:43:36 EDT 2023 Heart Rate 62.00 /min SatFeb 13 18:43 :36 EDT 2023 Systolic Blood Pressure 104.00 mm[Hg] SatFeb 13 09:51:31 EDT 2023 Diastolic Blood Pressure 63.00 mm[Hg] SatFeb 13 09:51:31 EDT 2023 Heart Rate 59.00 /min SatFeb 13 09:51 :31 EDT 2023 Systolic Blood Pressure 138.00 mm[Hg] SatFeb 12 08:23:41 EDT 2023 Diastolic Blood Pressure 83.00 mm[Hg] SatFeb 12 08:23:41 EDT 2023 Heart Rate 57.00 /min SatFeb 12 08:23 :41 EDT 2023 Systolic Blood Pressure 154.00 mm[Hg] SatFeb 11 20:09:56 EDT 2023 Diastolic Blood Pressure 88.00 mm[Hg] SatFeb 11 20:09:56 EDT 2023 Heart Rate 66.00 /min SatFeb 11 20:09 :56 EDT 2023 Systolic Blood Pressure 131.00 mm[Hg] SatFeb 11 08:03:45 EDT 2023 Diastolic Blood Pressure 73.00 mm[Hg] SatFeb 11 08:03:45 EDT 2023 Heart Rate 60.00 /min SatFeb 11 08:03 :45 EDT 2023 Systolic Blood Pressure 129.00 mm[Hg] SatFeb 10 18:29:27 EDT 2023 Diastolic Blood Pressure 69.00 mm[Hg] SatFeb 10 18:29:27 EDT 2023 Heart Rate 60.00 /min SatFeb 10 18:29 :27 EDT 2023 Systolic Blood Pressure 132.00 mm[Hg] SatFeb 10 08:23:56 EDT 2023 Diastolic Blood Pressure 79.00 mm[Hg] SatFeb 10 08:23:56 EDT 2023 Heart Rate 58.00 /min SatFeb 10 08:23 :56 EDT 2023 Reason for Referral Past Medical History Resolved Concerns * Problem Metabolic encephalopathy* Code: * Start Date: SatMar 13 00:00:00 EDT 2022 * End Date: SatJul 11 00:00:00 EDT 2022 * Problem Gram-negative sepsis, unspecified* Code: * Start Date: SatMar 13 00:00:00 EDT 2022 * End Date: SatJul 11 00:00:00 EDT 2022 * Problem Acute cystitis with hematuria* Code: * Start Date: SatMar 13 00:00:00 EDT 2022 * End Date: SatJul 11 00:00:00 EDT 2022 * Problem Pneumonia, unspecified organism* Code: * Start Date: SatMarch 31 00:00:00 EDT 2022 * End Date: SatJul 11 00:00:00 EDT 2022 * Problem Altered mental status, unspecified* Code: * Start Date: SatMarch 31 00:00:00 EDT 2022 * End Date: SatJul 11 00:00:00 EDT 2022 * Problem Delirium due to known physiological condition* Code: * Start Date: SatMarch 31 00:00:00 EDT 2022 * End Date: SatJul 11 00:00:00 EDT 2022 * Problem Weakness* Code: * Start Date: SatMarch 31 00:00:00 EDT 2022 * End Date: SatJul 11 00:00:00 EDT 2022 * Problem Other abnormalities of gait and mobility* Code: * Start Date: SatMarch 31 00:00:00 EDT 2022 * End Date: SatJul 11 00:00:00 EDT 2022 * Problem Acute pyelonephritis* Code: * Start Date: SatMay 07 00:00:00 EDT 2022 * End Date: SatJul 11 00:00:00 EDT 2022 * Problem Acute kidney failure, unspecified* Code: * Start Date: SatMay 07 00:00:00 EDT 2022 * End Date: SatJul 11 00:00:00 EDT 2022 * Problem Other urethritis* Code: * Start Date: SatMay 07 00:00:00 EDT 2022 * End Date: SatJul 11 00:00:00 EDT 2022 * Problem Infection and inflammatory reaction due to indwelling urethral catheter, subsequent encounter* Code: * Start Date: SatMay 07 00:00:00 EDT 2022 * End Date: SatJul 11 00:00:00 EDT 2022 * Problem Klebsiella pneumoniae [K. pneumoniae] as the cause of diseases classified elsewhere* Code: * Start Date: SatMay 07 00:00:00 EDT 2022 * End Date: SatJul 11 00:00:00 EDT 2022 * Problem Cystitis, unspecified without hematuria* Code: * Start Date: SatMay 07 00:00:00 EDT 2022 * End Date: SatJul 11 00:00:00 EDT 2022 * Problem Candidal balanitis* Code: * Start Date: SatMay 07 00:00:00 EDT 2022 * End Date: SatJul 11 00:00:00 EDT 2022 * Problem Unsteadiness on feet* Code: * Start Date: SatMay 07 00:00:00 EDT 2022 * End Date: SatJul 11 00:00:00 EDT 2022 * Problem Muscle weakness (generalized)* Code: * Start Date: SatJun 27 00:00:00 EDT 2022 * End Date: SatJul 11 00:00:00 EDT 2022 * Problem Urinary tract infection, site not specified* Code: * Start Date: SatJun 27 00:00:00 EDT 2022 * End Date: SatJul 01 00:00:00 EDT 2022 * Problem Unspecified fall, subsequent encounter* Code: * Start Date: SatJun 27 00:00:00 EDT 2022 * End Date: SatSep 04 00:00:00 EDT 2023 * Problem Laceration without foreign body of right eyelid and periocular area, subsequent encounter* Code: * Start Date: SatJun 27 00:00:00 EDT 2022 * End Date: SatDec 03 00:00:00 EST 2023 * Problem Laceration without foreign body of right forearm, subsequent encounter * Code: * Start Date: SatJun 27 00:00:00 EDT 2022 * End Date: SatDec 03 00:00:00 EST 2023 * Problem Laceration without foreign body of right upper arm, subsequent encounter* Code: * Start Date: SatJul 11 00:00:00 EDT 2022 * End Date: SatDec 03 00:00:00 EST 2023 * Problem Laceration without foreign body of right hand, subsequent encounter* Code: * Start Date: SatJun 27 00:00:00 EDT 2022 * End Date: SatDec 03 00:00:00 EST 2023 * Problem Weakness* Code: * Start Date: SatJul 29 00:00:00 EDT 2022 * End Date: SatDec 03 00:00:00 EST 2023 * Problem Muscle weakness (generalized)* Code: * Start Date: SatJul 29 00:00:00 EDT 2022 * End Date: SatDec 03 00:00:00 EST 2023 * Problem Urinary tract infection, site not specified* Code: * Start Date: SatSep 26 00:00:00 EST 2022 * End Date: SatSep 04 00:00:00 EDT 2023 * Problem Altered mental status, unspecified* Code: * Start Date: SatSep 26 00:00:00 EST 2022 * End Date: SatDec 03 00:00:00 EST 2023 * Problem Elevated white blood cell count, unspecified* Code: * Start Date: SatOct 14 00:00:00 EST 2022 * End Date: SatDec 03 00:00:00 EST 2023 * Problem Contusion of lip, subsequent encounter* Code: * Start Date: SatNov 23 00:00:00 EST 2023 * End Date: SatSep 04 00:00:00 EDT 2023 * Problem Unspecified injury of head, subsequent encounter* Code: * Start Date: SatNov 23 00:00:00 EST 2023 * End Date: SatSep 04 00:00:00 EDT 2023
--- NOTE | 2025-02-09 20:52 | PC.NURSE ---
Updated [place].
[2025-02-09 21:06] VITALS: BP 106/52; PULSE 77; RESP 15; O2SAT 99
== END 2025-02-09 22:17 ==
PROVIDERS: Emergency Provider Emergency Medicine
DX: M25.552 Pain in left hip (principal); M25.562 Pain in left knee; F03.90 Unspecified dementia, unspecified severity, without behavioral disturbance, psychotic disturbance, mood disturbance, and anxiety; Z86.73 Personal history of transient ischemic attack (TIA), and cerebral infarction without residual deficits; W19.XXXA Unspecified fall, initial encounter
CPT/HCPCS: 70450; 72125; 73521; 73560; 99284